=== PATIENT | female | born 1970 | race Caucasian/White ===

== ENCOUNTER → 2018-05-25 15:18 | Outpatient (CLI) | payer OTHER, SELFPAY ==
[2018-05-25 15:44] LABS: International Normalized Ratio 3.2; Prothrombin Time (Protime)PT. 32.9 SECONDS (11.7-14.9)
== END ==
LOC: LABSPEC 15:20
PROVIDERS: Family Provider Family Medicine; PCP Family Medicine; Visit Provider Family Medicine
DX: I26.99 Other pulmonary embolism without acute cor pulmonale (principal)
CPT/HCPCS: 85610

== ENCOUNTER 2018-06-15 06:34 | Day surgery (SDC) | payer OTHER, SELFPAY ==
[2018-06-15 06:52] VITALS: BP 121/65; PULSE 71; RESP 18; TEMP 37; O2SAT 98; BMI 33.4
[2018-06-15 07:55] VITALS: BP 109/66; BP 121/65; PULSE 83; RESP 16; TEMP 36.8; O2SAT 97
--- NOTE | 2018-06-15 07:58 | OP.ENDO_ITS ---
Patient Name: Penny Morfin Procedure Date: 06/15/2018 7:30 AM Date of : 1970 Age: 48 Procedure: Colonoscopy Indications: Change in bowel habits, Change in stool caliber Providers: Isael Lam MD Medicines: See the Anesthesia note for documentation of the administered medications Patient Profile: Last Colonoscopy: more than 5 years ago. Complications: No immediate complications. Procedure: Pre-Anesthesia Assessment: - Prior to the procedure, a History and Physical was performed, and patient medications and allergies were reviewed. The patient's tolerance of previous anesthesia was also reviewed. The risks and benefits of the procedure and the sedation options and risks were discussed with the patient. All questions were answered, and informed consent was obtained. Prior Anticoagulants: The patient has taken Lovenox (enoxaparin), last dose was 1 day prior to procedure. ASA Grade Assessment: III - A patient with severe systemic disease. After reviewing the risks and benefits, the patient was deemed in satisfactory condition to undergo the procedure. After I obtained informed consent, the scope was passed under direct vision. Throughout the procedure, the patient's blood pressure, pulse, and oxygen saturations were monitored continuously. The colonoscope was introduced through the anus and advanced to the cecum, identified by appendiceal orifice and ileocecal valve. The colonoscopy was performed without difficulty. The patient tolerated the procedure well. The quality of the bowel preparation was good. Scope In: 7:37:18 AM Scope Withdrawal Time 0 hours 6 minutes 12 seconds Scope Out: 7:50:17 AM Total Procedure Duration Time 0 hours 12 minutes 59 seconds Findings: Hemorrhoids were found on perianal exam. Non-bleeding internal hemorrhoids were found during retroflexion. The hemorrhoids were mild. The exam was otherwise without abnormality. Impression: - Hemorrhoids found on perianal exam. - Non-bleeding internal hemorrhoids. - The examination was otherwise normal. - No specimens collected. - Nothing to explain the change in stool caliber. Recommendation: - Discharge patient to home. - Resume previous diet. - Continue present medications. - Repeat colonoscopy in 10 years for screening purposes. - Return to my office in 1 week. Procedure Code(s): --- Professional --- 91791, Colonoscopy, flexible; diagnostic, including collection of specimen(s) by brushing or washing, when performed (separate procedure) Diagnosis Code(s): --- Professional --- K64.8, Other hemorrhoids R19.4, Change in bowel habit R19.5, Other fecal abnormalities CPT copyright 2017 [employer]. All rights reserved. The codes documented in this report are preliminary and upon chucking machine set up operator tool review may be revised to meet current compliance requirements. MD Isael Amor MD 06/15/2018 7:57:23 AM This report has been signed electronically. Number of Addenda: 0 Note Initiated On: 06/15/2018 7:30 AM
[2018-06-15 08:00] VITALS: BP 108/65; BP 121/65; PULSE 75; RESP 16; O2SAT 97
[2018-06-15 08:05] VITALS: BP 103/59; BP 121/65; PULSE 73; RESP 16; O2SAT 98
[2018-06-15 08:10] VITALS: BP 103/67; BP 121/65; PULSE 73; RESP 16; TEMP 36.4; O2SAT 97
[2018-06-15 08:31] VITALS: BP 121/65
== END 2018-06-15 08:31 | disposition home or self-care (01) ==
LOC: EN 06:35 → AC 06:36
PROVIDERS: Family Provider Family Medicine; PCP Family Medicine; Referring Provider Surgery; Visit Provider Surgery
PROC: 0DJD8ZZ Inspection of Lower Intestinal Tract, Via Natural or Artificial Opening Endoscopic (ICD-10-PCS; CPT 45378; principal; 2018-06-15 07:25)
DX: K64.8 Other hemorrhoids (principal); R19.4 Change in bowel habit; M32.9 Systemic lupus erythematosus, unspecified; M06.9 Rheumatoid arthritis, unspecified; F41.9 Anxiety disorder, unspecified; Z86.711 Personal history of pulmonary embolism; Z90.49 Acquired absence of other specified parts of digestive tract; Z79.01 Long term (current) use of anticoagulants; Z87.891 Personal history of nicotine dependence; F17.200 Nicotine dependence, unspecified, uncomplicated
CPT/HCPCS: 45378; J7120; J1610

== ENCOUNTER → 2018-07-01 12:20 | Outpatient (CLI) | payer OTHER, SELFPAY ==
--- NOTE | 2018-07-01 12:26 | RAD_ITS ---
STUDY: X-RAY - PELVIS REASON FOR EXAM: Female, 48 years old. Inflammatory polyarthropathy TECHNIQUE: One view of the pelvis was obtained. COMPARISON: None. FINDINGS: There is a non-specific bowel gas pattern. Normal visualized soft tissue structures. Normal bilateral iliac wings, sacroiliac joints and visualized sacrum. Normal visualized bilateral superior and inferior pubic rami. Normal pubic symphysis. Normal ischial tuberosities. Normal visualized right femoral head. Normal right acetabulum. Normal right hip joint. Normal visualized left femoral head. Normal left acetabulum. Normal left hip joint. RAD/Pelvis 1 or 2 Views IMPRESSION: Normal x-ray examination of the pelvis. Electronically Signed: Gonzalez Clark DO at 11:00 EDT Tel , Service support ,
[2018-07-01 13:10] LABS: Prothrombin Time Fingerstick 47.6 SEC (11.9-14.4)
[2018-07-01 14:39] LABS: Absolute Lymphocyte Count 0.97 X10^3/ul (0.83-4.51); Absolute Neutrophil Count 2.8 X10^3/uL (2.0-7.7); Basophil# 0.07 X10^3/uL; Basophil% 1.5 % (0-1); Color, Urine Yellow (Yellow); Eosinophil# 0.28 X10^3/uL; Eosinophils% 5.8 % (0-5); Glucose, Dipstick Normal (Normal); Hematocrit 40.3 % (37-47); Hemoglobin 13.4 g/dl (12.0-15.0); Ketone-Dipstick Negative (Negative); Leukocyte Esterase-Dipstick Negative /ul (Negative); Lymphocyte # 0.97 X10^3/ul (4.0); Lymphocyte % 20.2 % (19-41); Mean Corp Hgb Conc 33.3 g/gl (32-36); Mean Corpuscular Hgb 29.6 pg (27.0-32.0); Mean Platelet Vol. 10.2 fl (6.2-12.0); Monocyte# 0.66 X10^3/uL; Monocyte% 13.7 % (0-10); Neutrophil # 2.83 X10^3/uL (2.7-7.7); Neutrophil % 58.8 % (47-70); Nitrite-Dipstick Negative (Negative); Occult Blood-Urine 10 /ul (Negative); POSITIVE COUNT NO; POSITIVE DIFFERENTIAL NO; POSITIVE MORPHOLOGY NO; Platelet Count 297 K/mm3 (150-450); Protein-Dipstick Negative (Negative); RBC Distribution Width CV 13.3 % (11.6-14.6); RBC Distribution Width SD 43.2 fl (35.1-43.9); Red Blood Count 4.53 M/mm3 (4.2-5.4); Urine Bilirubin Dipstick Negative (Negative); Urine Clarity Clear (Clear); Urine Urobilinogen Normal (Normal); White Blood Count 4.8 K/mm3 (4.4-11.0)
[2018-07-01 14:46] LABS: International Normalized Ratio 3.2; Prothrombin Time (Protime)PT. 33.1 SECONDS (11.7-14.9)
[2018-07-01 15:01] LABS: ALB/GLOB Ratio 0.8 RATIO (0.9-2.4); AST(SGOT) 15 U/L (15-37); Alanine Aminotransfer ALT/SGPT 29 U/L (13-56); Albumin, Serum 3.6 g/dL (3.2-5.0); Alkaline Phosphatase 54 U/L (45-117); Anion Gap 6 (5-15); BUN 10 mg/dL (7-18); BUN/Creat Ratio 13.7 RATIO (10-20); Calcium,Total 8.4 mg/dL (8.5-10.1); Chloride 106 mmol/L (98-107); Creatinine, Serum 0.73 mg/dL (0.55-1.02); EST Glomerular Filtration Rate 90 mL/min (>60); Est Glom Filt Rate - Afr Amer 109 mL/min (>60); Globulin 4.6 g/dL (2.2-4.2); Glucose 85 mg/dL (74-106); Potassium 3.8 mmol/L (3.5-5.1); Protein, Total 8.2 g/dL (6.4-8.2); Sodium Level 141 mmol/L (136-145)
[2018-07-01 15:06] LABS: Vitamin D,25 Hydroxy 17.8 ng/mL (29.95-100.01)
[2018-07-01 15:09] LABS: Creatinine, Urine (random) < 13.00 mg/dL (NO RANGE EST.); Protein, Urine (Random) < 6.0 mg/dL (<11.9)
[2018-07-02 14:07] LABS: Anti-Centromere B Ab <0.2 AI (0.0-0.9); Anti-Jo <0.2 AI (0.0-0.9); Anti-Scleroderma-70 AB <0.2 AI (0.0-0.9); RNP Ab <0.2 AI (0.0-0.9); SJOGREN'S Anti-SS-A test > 8.0 AI (0.0-0.9); SJOGREN'S Anti-SS-B test > 8.0 AI (0.0-0.9); Smith Ab 0.2 AI (0.0-0.9)
[2018-07-03 11:07] LABS: ANTINUCLEAR ANTIBODIES DIRECT Positive (Negative); Anti-dsDNA Ab 1 IU/mL (0-9)
[2018-07-07 20:08] LABS: Complement C3 116 mg/dL (82-167)
[2018-07-08 09:13] LABS: CCP IgG Antibodies 10 units (0-19); HEPATITIS B SURFACE AG Negative (Negative); HLA B27 Negative (.); Hep B Surface Antibodies Non Reactive (.); Hep C Antibodies <0.1 s/co ratio (0.0-0.9)
== END ==
LOC: MTLAB 12:23
PROVIDERS: Internal Medicine Hematology & Oncology; Family Provider Family Medicine; PCP Family Medicine; Referring Provider Internal Medicine Rheumatology; Visit Provider Internal Medicine Rheumatology
DX: M06.4 Inflammatory polyarthropathy (principal); F41.8 Other specified anxiety disorders; I26.99 Other pulmonary embolism without acute cor pulmonale
CPT/HCPCS: 36415; 36416; 72170; 80053; 81002; 81374; 82306; 82570; 84156; 85025; 85610; 86038; 86160; 86200; 86225; 86235; 86431; 86706; 86803; 87340

== ENCOUNTER → 2019-01-08 | Outpatient (CLI) | payer OTHER, SELFPAY ==
[2019-01-08 15:22] LABS: International Normalized Ratio 3.8; Prothrombin Time (Protime)PT. 37.9 SECONDS (11.7-14.9)
== END | disposition home or self-care (01) ==
LOC: LABSPEC 14:48
PROVIDERS: Family Provider Family Medicine; PCP Family Medicine; Referring Provider Internal Medicine Hematology & Oncology; Visit Provider Internal Medicine Hematology & Oncology
DX: I26.99 Other pulmonary embolism without acute cor pulmonale (principal)
CPT/HCPCS: 85610

== ENCOUNTER → 2019-02-01 | Outpatient (CLI) | payer OTHER, SELFPAY ==
[2019-02-01 17:47] LABS: Absolute Lymphocyte Count 1.15 X10^3/ul (0.83-4.51); Absolute Neutrophil Count 2.8 X10^3/uL (2.0-7.7); Basophil# 0.06 X10^3/uL; Basophil% 1.2 % (0-1); Eosinophil# 0.25 X10^3/uL; Hematocrit 40.7 % (37-47); Hemoglobin 13.6 g/dl (12.0-15.0); Lymphocyte # 1.15 X10^3/ul (4.0); Mean Corp Hgb Conc 33.4 g/gl (32-36); Mean Corpuscular Hgb 28.8 pg (27.0-32.0); Monocyte# 0.76 X10^3/uL; Monocyte% 15.2 % (0-10); Neutrophil # 2.78 X10^3/uL (2.7-7.7); Neutrophil % 55.6 % (47-70); Platelet Count 271 K/mm3 (150-450); RBC Distribution Width CV 13.2 % (11.6-14.6); Red Blood Count 4.73 M/mm3 (4.2-5.4)
[2019-02-01 17:48] LABS: POSITIVE COUNT NO; POSITIVE DIFFERENTIAL NO; POSITIVE MORPHOLOGY NO
[2019-02-01 18:05] LABS: ALB/GLOB Ratio 0.8 RATIO (0.9-2.4); AST(SGOT) 17 U/L (15-37); Alanine Aminotransfer ALT/SGPT 23 U/L (13-56); Albumin, Serum 3.6 g/dL (3.2-5.0); Alkaline Phosphatase 55 U/L (45-117); Anion Gap 7 (5-15); BUN 11 mg/dL (7-18); Calcium,Total 8.9 mg/dL (8.5-10.1); Chloride 108 mmol/L (98-107); Creatinine, Serum 0.79 mg/dL (0.55-1.02); EST Glomerular Filtration Rate 82 mL/min (>60); Est Glom Filt Rate - Afr Amer 100 mL/min (>60); Globulin 4.8 g/dL (2.2-4.2); Glucose 84 mg/dL (74-106); Potassium 3.9 mmol/L (3.5-5.1); Protein, Total 8.4 g/dL (6.4-8.2); Sodium Level 142 mmol/L (136-145)
== END | disposition home or self-care (01) ==
LOC: MTLAB 15:06
PROVIDERS: Family Provider Family Medicine; PCP Family Medicine; Referring Provider Internal Medicine Rheumatology; Visit Provider Internal Medicine Rheumatology
DX: M06.4 Inflammatory polyarthropathy (principal); M79.7 Fibromyalgia; F41.8 Other specified anxiety disorders; R76.8 Other specified abnormal immunological findings in serum; R76.0 Raised antibody titer
CPT/HCPCS: 36415; 80053; 85025

== ENCOUNTER → 2019-02-09 | Outpatient (CLI) | payer OTHER, SELFPAY | END | disposition home or self-care (01) | LOC: LABSPEC 13:23 | PROVIDERS: Family Provider Family Medicine; PCP Family Medicine; Referring Provider Internal Medicine Hematology & Oncology; Visit Provider Internal Medicine Hematology & Oncology | DX: I26.99 Other pulmonary embolism without acute cor pulmonale (principal) | CPT/HCPCS: 85610 ==

== ENCOUNTER → 2019-02-10 | Outpatient (CLI) | payer OTHER, SELFPAY ==
[2019-02-10 14:49] LABS: International Normalized Ratio 3.3; Prothrombin Time (Protime)PT. 33.5 SECONDS (11.7-14.9)
== END | disposition home or self-care (01) ==
LOC: LABSPEC 14:26
PROVIDERS: Family Provider Family Medicine; PCP Family Medicine; Referring Provider Internal Medicine Hematology & Oncology; Visit Provider Internal Medicine Hematology & Oncology
DX: I26.99 Other pulmonary embolism without acute cor pulmonale (principal)
CPT/HCPCS: 85610

== ENCOUNTER → 2019-03-18 | Outpatient (CLI) | payer OTHER, SELFPAY ==
[2019-03-18 14:38] LABS: International Normalized Ratio 3.3; Prothrombin Time (Protime)PT. 33.7 SECONDS (11.7-14.9)
== END | disposition home or self-care (01) ==
LOC: LABSPEC 14:10
PROVIDERS: Family Provider Family Medicine; PCP Family Medicine; Referring Provider Internal Medicine Hematology & Oncology; Visit Provider Internal Medicine Hematology & Oncology
DX: I26.99 Other pulmonary embolism without acute cor pulmonale (principal)
CPT/HCPCS: 85610

== ENCOUNTER → 2020-07-31 | Outpatient (REF) | payer SELFPAY | END | disposition home or self-care (01) | LOC: LABSPEC 07:23 | PROVIDERS: PCP Family Medicine; Visit Provider Family Medicine | DX: Z03.818 Encounter for observation for suspected exposure to other biological agents ruled out (principal) | CPT/HCPCS: 87635; U0003 ==

== ENCOUNTER → 2020-08-17 | Outpatient (REF) | payer MEDICARE, SELFPAY | END | disposition home or self-care (01) | LOC: LABSPEC 10:10 | PROVIDERS: PCP Family Medicine; Referring Provider Family Medicine; Visit Provider Family Medicine | DX: Z03.818 Encounter for observation for suspected exposure to other biological agents ruled out (principal) | CPT/HCPCS: 87635; U0003 ==

== ENCOUNTER 2020-08-24 20:06 | Emergency (ER) | payer SELFPAY ==
[2020-08-24 20:07] VITALS: BP 124/86; PULSE 81; RESP 18; TEMP 36.7; O2SAT 100; BMI 36.3
[2020-08-24 20:48] LABS: Absolute Lymphocyte Count 1.59 X10^3/uL (0.83-4.51); Absolute Neutrophil Count 5.3 X10^3/uL (2.0-7.7); Basophil# 0.08 X10^3/uL; Eosinophil# 0.32 X10^3/uL; Eosinophils% 3.9 % (0-5); Hematocrit 43.3 % (37-47); Hemoglobin 13.8 g/dL (12.0-15.0); Lymphocyte # 1.59 X10^3/ul (4.0); Lymphocyte % 19.4 % (19-41); Mean Corp Hgb Conc 31.9 g/dL (32-36); Mean Corpuscular Hgb 29.2 pg (27.0-32.0); Mean Corpuscular Volume 91.7 fL (81-99); Mean Platelet Vol. 9.7 fl (6.2-12.0); Monocyte# 0.92 X10^3/uL; Monocyte% 11.2 % (0-10); NRBC Flagged by Analyzer 0 % (0-5); Neutrophil # 5.29 X10^3/uL (2.7-7.7); Neutrophil % 64.4 % (47-70); Platelet Count 275 K/mm3 (150-450); RBC Distribution Width CV 13.6 % (11.6-14.6); RBC Distribution Width SD 46.5 fl (35.1-43.9); Red Blood Count 4.72 M/mm3 (4.2-5.4); White Blood Count 8.2 K/mm3 (4.4-11.0)
[2020-08-24 20:58] LABS: International Normalized Ratio 2.7
[2020-08-24 20:59] LABS: Fibrinogen 467 mg/dl (203-444)
[2020-08-24 21:02] LABS: Anion Gap 4 (5-15); BUN 13 mg/dL (7-18); BUN/Creat Ratio 18.1 RATIO (10-20); Chloride 110 mmol/L (98-107); Creatinine, Serum 0.72 mg/dL (0.55-1.02); EST Glomerular Filtration Rate 91 mL/min (>60); Est Glom Filt Rate - Afr Amer 110 mL/min (>60); Estimated Creatinine Clearance 86.54 ml/min; Glucose 89 mg/dL (74-106); Potassium 3.5 mmol/L (3.5-5.1); Sodium Level 143 mmol/L (136-145)
[2020-08-24 21:10] LABS: D-Dimer Quantitative (DVT/PE) 0.34 FEU/ug/m (0.27-0.49)
--- NOTE | 2020-08-24 21:31 | ED.DCSUM_ITS ---
History of Present Illness Chief Complaint: Rash Informant: Patient Onset: Today Narrative: Patient reports rash on both legs noted first on her left leg than her right. She is on her feet shopping throughout the day, states she felt itch on the lower legs she scratched this. Later on noted red spots which is progressing. Denies any pain in these regions. Denies trauma. She later noticed spots on her right leg. Patient reports she is on warfarin for history of multiple blood clots in the past history of lupus. She is followed by Dr. Moncada. She states recently her warfarin was decreased down to 9 mg from 10 mg. She states her target INR is between three and four. She does report to me that her pharmacy refilled a new prescription a week ago and the pills looked different. Denies any bleeding gums. States had blood work a week ago that was normal. This was shown to have platelets of 330. Denies any recent illness. Prior similar symptoms: No Past Medical History - Allergies and Home Meds Allergies/Adverse Reactions: Allergies No Known Allergies Allergy (Verified 08/24/20 20:09) Primary Care Physician: Dieter Kevin MD [Primary Care Provider] - Past Medical History: - - Rheumatoid arthritis, lupus, PEs Smoking Status: Current every day smoker Review of Systems General: Denies: Chills, Fever, Sweats Eyes: Denies: Visual changes - bilaterally, Diplopia ENT: Denies: Rhinorrhea, Sore throat Cardiovascular: Denies: Chest pain, Palpitations Respiratory: Denies: Dyspnea, Cough, Dyspnea on exertion Gastrointestinal: Denies: Abdominal pain, Nausea, Vomiting, Diarrhea, Melena, Hematochezia Genitourinary: Denies: Dysuria, Hematuria, Frequency Musculoskeletal: Denies: Back pain, Extremity Pain Skin: Reports: Rash. Denies: Wounds Neurological: Denies: Headache, Weakness, Numbness Physical Exam Vital Signs/Narrative: Vital Signs Temp Pulse Resp BP Pulse Ox 08/24/20 20:07 98.0 F 81 18 124/86 H 100 Inital Vital Signs reviewed: Yes General: Well nourished, Well developed, No Acute Distress Head: Normocephalic, Atraumatic Eyes: Perrl, EOMI ENT: Moist mucous membranes, No rhinorrhea Neck: Supple, Nontender Cardiovascular: Regular rate, Regular rhythm, No murmurs Respiratory: No distress, CTA bilaterally, Chest nontender Abdomen: Soft, Nontender, Nondistended, Normal bowel sounds Back: Nontender, Normal Inspection Extremities: Nontender, - - Very minimal edema distal leg, no calf or medial thigh tenderness. Skin: - - Left lower extremity: Distal leg with petechial rash, there is purpura rash in the back of the ankle, there is no raised lesion. Skin is intact. Nontender. Right lower extremity: Petechial lesions on the distal leg, nontender, skin intact. Neurological: Alert, Oriented x3, Cranial nerves II-XII grossly intact, Normal Strength, Normal Sensation Psychological: Normal affect, Normal Mood Diagnostic/Tx/Re-eval Abnormal Lab Results 08/24/20 08/24/20 08/24/20 20:30 20:30 20:30 WBC 8.2 RBC 4.72 Hgb 13.8 Hct 43.3 MCV 91.7 MCH 29.2 MCHC 31.9 L RDW Std Deviation 46.5 H RDW Coeff of Teja 13.6 Plt Count 275 MPV 9.7 Immature Gran % (Auto) 0.100 Neut % (Auto) 64.4 Lymph % (Auto) 19.4 Upton % (Auto) 11.2 H Eos % (Auto) 3.9 Baso % (Auto) 1.0 Absolute Neuts (auto) 5.3 Absolute Lymphs (auto) 1.59 Nucleated RBC % 0 PT 28.0 H INR 2.7 Fibrinogen 467 H D-Dimer Quant (PE/DVT) 0.34 Sodium 143 Potassium 3.5 Chloride 110 H Carbon Dioxide 29.0 Anion Gap 4 L BUN 13 Creatinine 0.72 Estim Creat Clear Calc 86.54 Est GFR (MDRD) Af Amer 110 Est GFR (MDRD) Non-Af 91 BUN/Creatinine Ratio 18.1 Glucose 89 Calcium 9.0 - Medical Decision Making Patient nontoxic, patient presenting with petechial rash and purpura. She is on warfarin. She denies trauma. I did obtain labs platelets 275, D-dimer 0.34, fibrinogen of 467 slightly elevated above the normal. INR 2.7. She denies any other bleeding issues. I did speak with covering orthotic fitter Dr. Jennings, discussed patient's history and findings and events. Very minimal swelling of the legs, patient without fevers vitals are stable with normal D-dimer and platelets. He states this is more reassuring for any serious events at this time. Recommended monitoring symptoms for leg elevation with EILEEN hoses. Follow-up as an outpatient with signs and symptoms discussed return. Photos were taken on the patient's phone to help follow any worsening symptoms. All questions were answered. ED Disposition - Plan for ED Patient: Disposition: Home or Assisted Living Diagnosis: Petechiae, Purpura Referrals: Prateek Moncada MD [STAFF PHYSICIAN] - 5-7 Days Additional Instructions: Petechia purpura of the legs. Wear your EILEEN hoses and elevate. INR 2.7, platelets 275, D-dimer 0.34, fibrinogen 467, white count of eight, hemoglobin 13. Monitor, worsening or other bleeding issues return to the ED.
== END 2020-08-24 21:41 | disposition home or self-care (01) ==
PROVIDERS: Emergency Provider Emergency Medicine; PCP Family Medicine
DX: D69.2 Other nonthrombocytopenic purpura (principal); M06.9 Rheumatoid arthritis, unspecified; Z79.01 Long term (current) use of anticoagulants; Z79.899 Other long term (current) drug therapy; F17.200 Nicotine dependence, unspecified, uncomplicated; Z86.711 Personal history of pulmonary embolism; Z86.718 Personal history of other venous thrombosis and embolism
CPT/HCPCS: 80048; 85025; 85379; 85384; 85610; 99282

== ENCOUNTER 2021-01-19 21:26 | Emergency (ER) | payer OTHER, SELFPAY ==
[2021-01-19 21:27] VITALS: BP 149/88; PULSE 81; RESP 16; TEMP 36.7; O2SAT 98; BMI 37.5
--- NOTE | 2021-01-19 22:00 | ED.VIS.BACK ---
HPI <Dr. Elio Carbajal DO - Last Filed: 01/19/21 23:15> History of Present Illness Chief Complaint: Back Narrative Narrative: 50-year-old female presenting with upper back pain. She states this started on Friday. She has been seen by her PCP for this and given Flexeril. She states this is not helping and the pain is getting worse. She denies any trauma. 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 She does not believe it is related. She states she also walked her dog who was pulling her around and she is unsure if this could have caused the pain. She states that it radiates from the center of her back bilaterally. Patient is on Coumadin for history of DVT. She also has anxiety and depression. PFS <Dr. Elio Carbajal DO - Last Filed: 01/19/21 23:15> [facility] Medical History (Updated 01/19/21 @ 22:[address] Elio Carbajal DO) Lupus (systemic lupus erythematosus) Pulmonary embolism Rheumatoid arthritis Home Medications lorazepam 1 mg PO BID PRN PRN 01/15/14 [History Last Taken Unknown] warfarin 7.5 mg tablet 10 mg PO DAILY tab 05/25/18 [History Last Taken 06/08/18] cyclobenzaprine 10 mg PO DAILY PRN PRN 01/19/21 [History Last Taken Unknown] hydrocodone-acetaminophen 1 tab PO Q6H PRN PRN 3 Days #12 tablet 01/19/21 [Rx Last Taken Unknown] paroxetine HCl 10 mg PO DAILY 01/19/21 [History Last Taken Unknown] Allergy/AdvReac Type Severity Reaction Status Date / Time No Known Allergies Allergy Verified 01/19/21 21:27 Family History Mother Diabetes Heart disease Hypertension High cholesterol Kidney disease Brother Diabetes High cholesterol Sister Diabetes High cholesterol Thyroid disorder Surgical History History of History of hysterectomy History of laparoscopic cholecystectomy Social History Smoking Status: Current every day smoker ROS <Dr. Elio Carbajal DO - Last Filed: 01/19/21 23:15> ROS ED Constitutional Constitutional ED: Denies chills, fever(s) or sweats Eyes Eyes: Denies blurry vision or change in vision ENT ENT ED: Denies ear pain, rhinorrhea or sore throat Cardiovascular Cardiovascular: Denies chest pain, palpitations or racing heartbeat Respiratory/Chest Respiratory/Chest: Denies cough, dyspnea or sputum Gastrointestinal Gastrointestinal: Denies abdominal pain, constipation, diarrhea or vomiting Genitourinary Genitourinary ED: Denies dysuria, hematuria or urinary frequency Musculoskeletal Musculoskeletal: Reports back pain; Denies arthralgias, myalgias or neck pain Integumentary Denies abscess, Abrasions or rash Neurologic Neurologic: Denies headache(s), paresthesias or weakness Psychiatric Psychiatric: Denies anxiety, depression, suicidal ideation or suicidal thoughts Endocrine Endocrinology: Denies polydipsia or polyuria EXAM <Dr. Elio Carbajal, DO - Last Filed: 01/19/21 23:15> Physical Exam Const Vital Signs: 01/19/21 21:27 Temperature 98.0 F Temperature Source Temporal Pulse Rate 81 Respiratory Rate 16 Blood Pressure 149/88 H Blood Pressure Mean 108 Pulse Ox 98 Oxygen Delivery Method Room Air Positive well nourished General Appearance ED: NAD; Negative for pallor HEENT Reports normocephalic, head/scalp atraumatic and moist mucous membranes Negative for trauma Eyes PERRL and EOMs intact bilaterally Neck no lymphadenopathy and supple Chest Wall inspection of chest normal and palpation of chest normal Resp normal respiratory effort and clear to auscultation bilaterally Auscultation: Negative for rales, rhonchi or wheezes Cardio regular rate and regular rhythm GI normal to inspection, nondistended, normoactive bowel sounds and non-distended Auscultation: normoactive bowel sounds Palpation: soft Narrative: Deferred Back/Spine no CVA tenderness General Back: Negative for CVA tenderness Cervical Spine: Negative for cervical spine tenderness Thoracic Spine / Upper Back: ROM limited, pain with ROM and thoracic spinal tenderness Extremity normal to inspection General Extremety ED: Yes edema and tenderness General Extremity: edema Neuro oriented x3 and CN's II-XII intact bilaterally Sensorium / Orientation: alert Motor Exam: strength 5/5 throughout Psych mental status grossly normal Attitude: No agitated Skin no rashes or lesions noted and no wounds General Skin Exam: Negative for jaundice or pallor <Dr. Adrian Benito MD - Last Filed: 01/19/21 23:55> Physical Exam Const Vital Signs: 01/19/21 21:27 Temperature 98.0 F Temperature Source Temporal Pulse Rate 81 Respiratory Rate 16 Blood Pressure 149/88 H Blood Pressure Mean 108 Pulse Ox 98 Oxygen Delivery Method Room Air [facility] <Dr. Elio Carbajal DO - Last Filed: 01/19/21 23:15> [facility] Narrative Medical decision making narrative: Patient presenting for upper back pain. This is approximately T11-T12. Patient has no midline deformity. She complains of pain that radiates bilaterally from here. She states that cyclobenzaprine is not working. Patient given oxycodone in the ED. I obtained images of the thoracic spine which are pending. Patient was complaining of upper back pain but after she went to imaging started complaining of lower back pain. For this reason lumbar spine was added. Patient will be signed out to incoming ED physician for follow-up on imaging and disposition. I suspect the patient will be discharged home. I did write her prescription for Holland 5 mg/325 because she is on Coumadin and cannot take anti-inflammatories and her Flexeril is not working. Radiography Diagnostic Testing: Radiology Impression Lumbar Spine X-Ray 01/19/21 23:08 IMPRESSION: Grade 1 anterolisthesis L4 on L5. Moderate multilevel degenerative disc disease and spondylosis at L4-5 and L5-S1. Severe multilevel facet arthropathy. Electronically Signed: Samy Hickman MD at 23:46 EDT Tel , Service support , Thoracic Spine X-Ray 01/19/21 23:08 IMPRESSION: No acute abnormalities. Mild multilevel degenerative disc disease and spondylosis. Electronically Signed: Samy Hickman MD at 23:44 EDT Tel , Service support , <Dr. Adrian Benito MD - Last Filed: 01/19/21 23:55> [facility] Radiography X-Ray: LS SPine, T-Spine, Read by ED Physician and Read by Radiologist Diagnostic Testing: Radiology Impression Lumbar Spine X-Ray 01/19/21 23:08 IMPRESSION: Grade 1 anterolisthesis L4 on L5. Moderate multilevel degenerative disc disease and spondylosis at L4-5 and L5-S1. Severe multilevel facet arthropathy. Electronically Signed: Samy Hickman MD at 23:46 EDT Tel , Service support , Thoracic Spine X-Ray 01/19/21 23:08 IMPRESSION: No acute abnormalities. Mild multilevel degenerative disc disease and spondylosis. Electronically Signed: Samy Hickman MD at 23:44 EDT Tel , Service support , Lumbar and thoracic spine x-rays show degenerative changes. No acute disease. Treatment and Re-Evaluation Comments:: This patient was checked out to me with x-rays pending. These have returned and show no acute disease. Patient will be discharged with prescription for Holland. Instructed to follow-up with her primary care physician if not improving. Return to the emergency department for any worsening symptoms. Discharge Plan Triage Chief Complaint: Back ED Provider: Elio Carbajal Dx/Rx/DC Orders Instructions: ED Back Pain (Acute or Chronic) Prescriptions: New hydrocodone-acetaminophen 5-325 mg tablet 1 tab PO Q6H PRN PRN (Reason: Pain) 3 Days Qty: 12 RF: 0 No Action lorazepam 1 MG tablet 1 mg PO BID PRN PRN (Reason: Anxiety) RF: 0 warfarin 7.5 mg tablet 10 mg PO DAILY RF: 0 cyclobenzaprine 10 mg tablet 10 mg PO DAILY PRN PRN (Reason: Pain) RF: 0 paroxetine HCl 10 mg tablet 10 mg PO DAILY RF: 0 Primary Care Provider: Dieter Kevin Referrals: Dieter Kevin MD [Primary Care Provider] - Disposition Disposition: Home, self care
[2021-01-19] MEDS: oxyCODONE 5 MG Tablet PO (22:29)
--- NOTE | 2021-01-19 23:08 | RAD_ITS ---
INDICATION: back pain EXAMINATION/TECHNIQUE: X-RAY - XR Spine Thoracic 3 Views COMPARISON: None FINDINGS: VERTEBRAE: Preserved vertebral body height. No fracture. No spondylolisthesis. Preservation of the normal thoracic kyphosis. Mild multilevel facet arthropathy. DISCS: Mild multilevel degenerative disc disease and spondylosis. INCLUDED CHEST/ABDOMEN: No acute abnormalities. RAD/Thoracic Spine 3 Views IMPRESSION: No acute abnormalities. Mild multilevel degenerative disc disease and spondylosis. Electronically Signed: Samy Hickman MD at 23:44 EDT Tel , Service support ,
--- NOTE | 2021-01-19 23:08 | RAD_ITS ---
INDICATION: back pain EXAMINATION/TECHNIQUE: X-RAY - XR Spine Lumbar 2 or 3 Views COMPARISON: None. FINDINGS: VERTEBRAE: Preserved vertebral body height. No fracture. 7 mm anterolisthesis L4 on L5. Preservation of the normal lumbar lordosis. Severe multilevel facet arthropathy. DISCS: Moderate multilevel degenerative disc disease and spondylosis at L4-5 and L5-S1. INCLUDED ABDOMEN: Included bowel gas pattern is non-obstructive. RAD/Lumbar Spine 2 or 3 Views IMPRESSION: Grade 1 anterolisthesis L4 on L5. Moderate multilevel degenerative disc disease and spondylosis at L4-5 and L5-S1. Severe multilevel facet arthropathy. Electronically Signed: Samy Hickman MD at 23:46 EDT Tel , Service support ,
[2021-01-19 23:57] VITALS: PULSE 78; RESP 14
== END 2021-01-20 00:01 | disposition home or self-care (01) ==
PROVIDERS: Emergency Provider Student in an Organized Health Care Education/Training Program; PCP Family Medicine
DX: M54.9 Dorsalgia, unspecified (principal); M51.34 Other intervertebral disc degeneration, thoracic region; M51.36 Other intervertebral disc degeneration, lumbar region; M51.37 Other intervertebral disc degeneration, lumbosacral region; M47.816 Spondylosis without myelopathy or radiculopathy, lumbar region; M32.9 Systemic lupus erythematosus, unspecified; M06.9 Rheumatoid arthritis, unspecified; F32.9 Major depressive disorder, single episode, unspecified; F41.9 Anxiety disorder, unspecified; F17.200 Nicotine dependence, unspecified, uncomplicated; Z79.01 Long term (current) use of anticoagulants; Z79.899 Other long term (current) drug therapy; Z86.718 Personal history of other venous thrombosis and embolism; Z86.711 Personal history of pulmonary embolism
CPT/HCPCS: 72072; 72100; 99283

== ENCOUNTER 2021-01-29 18:36 | Emergency (ER) | payer OTHER, SELFPAY ==
[2021-01-29 18:37] VITALS: BP 138/82; PULSE 85; RESP 18; TEMP 37.1; O2SAT 100; BMI 37.5
--- NOTE | 2021-01-29 19:18 | CT_ITS ---
STUDY: CT ABDOMEN AND PELVIS WITHOUT CONTRAST REASON FOR EXAM: Female, 50 years old. Pain RADIATION DOSAGE (If Supplied By Facility): CTDIvol = ( 17.23 ) mGy, DLP = ( 882.29 ) mGycm TECHNIQUE: Transaxial images were obtained from the dome of the diaphragm to the symphysis pubis without oral contrast, and without intravenous contrast. Sagittal and coronal images were reconstructed. Individualized dose optimization techniques were used for this CT. COMPARISON: 05/13/2018 FINDINGS: The visualized lung bases are unremarkable. The visualized portions of the heart are within normal limits. Normal liver. There is non-visualization of the gallbladder, which may be secondary to either contraction or a prior cholecystectomy. Normal spleen. Normal pancreas. Normal bilateral adrenal glands. Normal right kidney. 3 mm nonobstructing stone lower pole the left kidney. No hydronephrosis, ureteral stone, or ureteral dilatation. 3 cm cyst lower pole left kidney. Normal visualized stomach. Normal small intestine. Normal colon. The appendix is visualized and appears normal. Normal abdominal aorta. Normal inferior vena cava. Normal retroperitoneum. Normal urinary bladder. Normal abdominal wall. Focal degenerative disc disease at L4/L5. CT/Abdomen/Pelvis without Cont IMPRESSION: 3 mm nonobstructing left renal stone. Electronically Signed: Dallin Prasad MD at 20:04 EDT Tel , Service support ,
--- NOTE | 2021-01-29 19:19 | EX.ED.DYSGE1 ---
HPI History of Present Illness Chief Complaint: Constipation Narrative Narrative: Patient is a 50-year-old female who presents with abdominal bloating back pain and constipation. She states she is never been regular. She has not had a bowel movement in 4-5 days. Of note she was recently prescribed [place] for a back strain. She has tried milk of magnesia Senokot and a suppository without relief. She states she feels bloated. She is concerned because she also has some lower back pain. 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 Patient denies any vomiting. She does have flatus. [facility] Medical History (Updated 01/29/21 @ 20:[address] Andrey Topete MD) Lupus (systemic lupus erythematosus) Pulmonary embolism Rheumatoid arthritis Home Medications lorazepam 1 mg PO BID PRN PRN 01/15/14 [History Last Taken Unknown] warfarin 7.5 mg tablet 10 mg PO DAILY tab 05/25/18 [History Last Taken 06/08/18] cyclobenzaprine 10 mg PO DAILY PRN PRN 01/19/21 [History Last Taken Unknown] hydrocodone-acetaminophen 1 tab PO Q6H PRN PRN 3 Days #12 tablet 01/19/21 [Rx Last Taken Unknown] paroxetine HCl 10 mg PO DAILY 01/19/21 [History Last Taken Unknown] Allergy/AdvReac Type Severity Reaction Status Date / Time No Known Allergies Allergy Verified 01/29/21 18:38 Family History Mother Diabetes Heart disease Hypertension High cholesterol Kidney disease Brother Diabetes High cholesterol Sister Diabetes High cholesterol Thyroid disorder Surgical History History of History of hysterectomy History of laparoscopic cholecystectomy Social History Smoking Status: Current every day smoker tobacco type: cigarettes ROS ROS ED Constitutional Constitutional ED: Denies fever(s) Cardiovascular Cardiovascular: Denies chest pain Respiratory/Chest Respiratory/Chest: Denies dyspnea Gastrointestinal Gastrointestinal: Reports constipation and other Details: Abdominal discomfort and bloating ; Denies vomiting Musculoskeletal Musculoskeletal: Reports back pain Integumentary Denies rash Neurologic Neurologic: Denies headache(s) EXAM Physical Exam Const Vital Signs: 01/29/21 18:37 Temperature 98.7 F Temperature Source Oral Pulse Rate 85 Respiratory Rate 18 Blood Pressure 138/82 H Blood Pressure Mean 100 Pulse Ox 100 Oxygen Delivery Method Room Air Eyes EOMs intact bilaterally Neck supple Resp normal respiratory effort Cardio regular rate GI non-tender and non-distended Auscultation: normoactive bowel sounds Palpation: soft Neuro Sensorium / Orientation: alert Psych mental status grossly normal Skin no rashes or lesions noted MDM MDM MDM Narrative Medical decision making narrative: Serum labs and urinalysis are unremarkable. CT the abdomen pelvis showed nephrolithiasis. This is nonobstructive. But I believe this is the cause of the patient's symptoms. She does have moderate amount of stool in the ascending and transverse colon on my review. I do not see evidence of fecal impaction. Patient was advised on MiraLAX. She is agreeable to this plan. She understands return for new or worsening symptoms. Patient discharged. Lab Data Labs: Laboratory Results - last 24 hr 01/29/21 01/29/21 01/29/21 19:50 19:50 20:09 WBC 6.8 RBC 4.62 Hgb 13.6 Hct 42.2 MCV 91.3 MCH 29.4 MCHC 32.2 RDW Std Deviation 45.1 H RDW Coeff of Teja 13.3 Plt Count 289 MPV 9.2 Immature Gran % (Auto) 0.300 Neut % (Auto) 52.7 Lymph % (Auto) 26.1 [place] % (Auto) 14.2 H Eos % (Auto) 5.4 H Baso % (Auto) 1.3 H Absolute Neuts (auto) 3.6 Absolute Lymphs (auto) 1.78 Nucleated RBC % 0 Sodium 141 Potassium 3.4 L Chloride 108 H Carbon Dioxide 30.0 Anion Gap 3 L BUN 12 Creatinine 0.83 Estim Creat Clear Calc 75.07 Est GFR (MDRD) Af Amer 93 Est GFR (MDRD) Non-Af 77 BUN/Creatinine Ratio 14.4 Glucose 97 Calcium 8.8 Total Bilirubin 0.20 Direct Bilirubin 0.09 AST 19 ALT 22 Alkaline Phosphatase 85 Total Protein 8.6 H Albumin 3.7 Globulin 4.9 H Urine Color Yellow Urine Clarity Clear Urine pH 6.5 Ur Specific [place] 1.010 Urine Protein 30 H Urine Glucose (UA) Normal Urine Ketones Negative Urine Occult Blood 25 H Urine Nitrite Negative Urine Bilirubin Negative Urine Urobilinogen Normal Ur Leukocyte Esterase Negative Urine RBC 0-5 SEEN Urine WBC 0 SEEN Ur Squamous Epith Cells 0 SEEN Urine Bacteria 0 SEEN Urine Mucus 0 SEEN Radiography Diagnostic Testing: Radiology Impression Abdomen/Pelvis CT 01/29/21 19:18 IMPRESSION: 3 mm nonobstructing left renal stone. Electronically Signed: Dallin Prasad MD at 20:04 EDT Tel , Service support , Discharge Plan Triage Chief Complaint: Constipation ED Provider: Andrey Topete Dx/Rx/DC Orders Clinical Impression: Constipation Instructions: ED Constipation (Adult) Prescriptions: No Action lorazepam 1 MG tablet 1 mg PO BID PRN PRN (Reason: Anxiety) RF: 0 warfarin 7.5 mg tablet 10 mg PO DAILY RF: 0 cyclobenzaprine 10 mg tablet 10 mg PO DAILY PRN PRN (Reason: Pain) RF: 0 paroxetine HCl 10 mg tablet 10 mg PO DAILY RF: 0 hydrocodone-acetaminophen 5-325 mg tablet 1 tab PO Q6H PRN PRN (Reason: Pain) 3 Days Qty: 12 RF: 0 Primary Care Provider: Dieter Kevin Referrals: Dieter Kevin MD [Primary Care Provider] - Disposition Disposition: Home, self care
[2021-01-29 20:00] LABS: Absolute Lymphocyte Count 1.78 X10^3/uL (0.83-4.51); Absolute Neutrophil Count 3.6 X10^3/uL (2.0-7.7); Basophil# 0.09 X10^3/uL; Basophil% 1.3 % (0-1); Eosinophil# 0.37 X10^3/uL; Eosinophils% 5.4 % (0-5); Hematocrit 42.2 % (37-47); Hemoglobin 13.6 g/dL (12.0-15.0); Lymphocyte # 1.78 X10^3/ul (0.83-4.51); Lymphocyte % 26.1 % (19-41); Mean Corp Hgb Conc 32.2 g/dL (32-36); Mean Corpuscular Hgb 29.4 pg (27.0-32.0); Mean Corpuscular Volume 91.3 fL (81-99); Mean Platelet Vol. 9.2 fl (6.2-12.0); Monocyte# 0.97 X10^3/uL; Monocyte% 14.2 % (0-10); NRBC Flagged by Analyzer 0 % (0-5); Neutrophil % 52.7 % (47-70); Platelet Count 289 K/mm3 (150-450); RBC Distribution Width CV 13.3 % (11.6-14.6); RBC Distribution Width SD 45.1 fl (35.1-43.9); Red Blood Count 4.62 M/mm3 (4.2-5.4); White Blood Count 6.8 K/mm3 (4.4-11.0)
[2021-01-29 20:30] LABS: AST(SGOT) 19 U/L (15-37); Alanine Aminotransfer ALT/SGPT 22 U/L (13-56); Albumin, Serum 3.7 g/dL (3.2-5.0); Alkaline Phosphatase 85 U/L (45-117); Anion Gap 3 (5-15); BUN 12 mg/dL (7-18); BUN/Creat Ratio 14.4 RATIO (10-20); Bilirubin, Direct 0.09 mg/dL (0.00-0.30); Calcium,Total 8.8 mg/dL (8.5-10.1); Chloride 108 mmol/L (98-107); Creatinine, Serum 0.83 mg/dL (0.55-1.02); EST Glomerular Filtration Rate 77 mL/min (>60); Est Glom Filt Rate - Afr Amer 93 mL/min (>60); Estimated Creatinine Clearance 75.07 ml/min; Globulin 4.9 g/dL (2.2-4.2); Glucose 97 mg/dL (74-106); Potassium 3.4 mmol/L (3.5-5.1); Protein, Total 8.6 g/dL (6.4-8.2); Sodium Level 141 mmol/L (136-145)
[2021-01-29 20:30] LABS: Bacteria 0 SEEN /hpf (None Seen); Color, Urine Yellow (Yellow); Glucose, Dipstick Normal (Normal); Ketone-Dipstick Negative (Negative); Leukocyte Esterase-Dipstick Negative /ul (Negative); Mucous, Urine 0 SEEN /hpf (<or=2+); Nitrite-Dipstick Negative (Negative); Occult Blood-Urine 25 /ul (Negative); Protein-Dipstick 30 mg/dl (Negative); Squamous Epithelial Cells - UA 0 SEEN /hpf (5-10); Urine Bilirubin Dipstick Negative (Negative); Urine Clarity Clear (Clear); Urine Urobilinogen Normal (Normal); Urine pH 6.5 (5.0 - 8.0); White Blood Cells 0 SEEN /hpf (0-5)
[2021-01-29 20:38] LABS: Red Blood Cells-Urine 0-5 SEEN /hpf (0-5)
== END 2021-01-29 21:25 | disposition home or self-care (01) ==
PROVIDERS: Emergency Provider Emergency Medicine; PCP Family Medicine
DX: K59.00 Constipation, unspecified (principal); F17.210 Nicotine dependence, cigarettes, uncomplicated
CPT/HCPCS: 74176; 80048; 80076; 81001; 85025; 99284; A4216

== ENCOUNTER 2022-08-19 23:17 | Emergency (ER) | payer SELFPAY ==
[2022-08-19 23:17] VITALS: BP 141/107; PULSE 109; RESP 18; TEMP 37.2; O2SAT 97; BMI 37.1
--- NOTE | 2022-08-20 00:22 | EDS_ITS ---
HPI History of Present Illness Chief Complaint: Cold Sx Narrative Narrative: 52-year-old female presenting with cough, fever, chills, body aches which started on Friday. Patient denies any nausea or vomiting. She is eating and drinking normally. Is making normal urine and stool. She was seen at [facility] yesterday and clinically diagnosed with influenza. She was treated with Tamiflu and Tessalon Perles. She states that now her ears are hurting. She had these looked at yesterday as well and was told they are not infected. Patient does state that she has history of PE for which she is on Coumadin. She checks her INR at home and states that this last week it was therapeutic at 3.4. She is not dyspneic. No black or bloody stools. No lightheadedness. [facility] Medical History Lupus (systemic lupus erythematosus) Pulmonary embolism Rheumatoid arthritis Home Medications lorazepam 1 mg tablet 1 mg PO BID PRN PRN Anxiety 01/15/14 [History Last Taken Unknown] warfarin 7.5 mg tablet 10 mg PO DAILY 05/25/18 [History Last Taken 06/08/18] cyclobenzaprine 10 mg tablet 10 mg PO DAILY PRN PRN Pain 01/19/21 [History Last Taken Unknown] hydrocodone-acetaminophen 5-325mg 5mg-325mg 1 tab PO Q6H PRN PRN Pain 3 days #12 TABLETS 01/19/21 [Rx Last Taken Unknown] paroxetine HCl 10 mg tablet 10 mg PO DAILY 01/19/21 [History Last Taken Unknown] amoxicillin 875 mg-potassium clavulanate 125 mg tablet 1 tab PO BID #20 tabs 08/20/22 [Rx Last Taken Unknown] Allergy/AdvReac Type Severity Reaction Status Date / Time No Known Allergies Allergy Verified 08/19/22 23:19 Family History Mother Diabetes Heart disease Hypertension High cholesterol Kidney disease Brother Diabetes High cholesterol Sister Diabetes High cholesterol Thyroid disorder Surgical History History of History of hysterectomy History of laparoscopic cholecystectomy Social History Smoking Status: Current every day smoker tobacco type: cigarettes ROS ROS ED Constitutional Constitutional ED: Reports chills and fever(s) Eyes Eyes: Denies change in vision or diplopia ENT ENT ED: Reports rhinorrhea and sore throat Cardiovascular Cardiovascular: Denies palpitations Respiratory/Chest Respiratory/Chest: Reports cough and dyspnea Gastrointestinal Gastrointestinal: Denies nausea or vomiting Genitourinary Genitourinary ED: Denies dysuria or hematuria Musculoskeletal Musculoskeletal: Reports myalgias; Denies arthralgias Integumentary Denies abscess Neurologic Neurologic: Reports headache(s); Denies paresthesias or weakness EXAM Physical Exam Const Vital Signs: 08/19/22 23:17 08/20/22 00:03 Temperature 98.9 F Temperature Source Temporal Pulse Rate 109 H Respiratory Rate 18 Respiratory Effort Short of Breath Respiratory Depth Shallow Respiratory Pattern Tachypnea Blood Pressure 141/107 H Blood Pressure Mean 118 Pulse Ox 97 Oxygen Delivery Method Room Air Positive well nourished General Appearance ED: NAD HEENT Reports moist mucous membranes External Ear: external ears normal Tympanic Membrane ED: Yes TM abnormal bulging and erythematous Mouth ED: Yes oral and palatal mucosa normal, Yes lips normal, Yes tongue normal and Yes salivary gland normal Mouth: oral and palatal mucosa normal, lips normal, tongue normal and salivary gland normal Throat: posterior oropharynx normal Eyes PERRL and EOMs intact bilaterally Neck no lymphadenopathy, supple and no JVD Chest Wall inspection of chest normal Resp normal respiratory effort and clear to auscultation bilaterally Auscultation: Negative for rales, rhonchi or wheezes Cardio regular rate and regular rhythm GI normal to inspection, nondistended, normoactive bowel sounds Neuro oriented x3 and CN's II-XII intact bilaterally Sensorium / Orientation: alert Motor Exam: strength 5/5 throughout Psych mental status grossly normal Skin no rashes or lesions noted and no wounds MDM MDM MDM Narrative Medical decision making narrative: Patient presenting with flulike illness. She states this started on Friday. She reports that her ears are hurting her more than anything now today. On examination she does appear to have a right otitis media. I did offer blood work, imaging but she declines. She is already been treated with Tamiflu. She has Tessalon Perles at home. I will start her on Augmentin for her otitis media. Patient discharged home in stable condition. Impression: 1. Viral syndrome 2. Right otitis media Lab Data Attestation: I reviewed the patient's lab results. Discharge Plan Triage Chief Complaint: Cold Sx ED Provider: Elio Carbajal Dx/Rx/DC Orders Instructions: ED Otitis Media Antibiotic ..., ED Viral Syndrome (Adult) Prescriptions: New amoxicillin-pot clavulanate 875-125 mg tablet 1 tab PO BID Qty: 20 0RF No Action lorazepam 1 MG tablet 1 mg PO BID PRN PRN (Reason: Anxiety) Rx Instructions: PRN ANXIETY warfarin 7.5 mg tablet 10 mg PO DAILY cyclobenzaprine 10 mg tablet 10 mg PO DAILY PRN PRN (Reason: Pain) paroxetine HCl 10 mg tablet 10 mg PO DAILY Label Comments: Take 1 tablet by mouth once daily. hydrocodone-acetaminophen 5-325 mg tablet 1 tab PO Q6H PRN PRN (Reason: Pain) 3 Days Qty: 12 0RF Primary Care Provider: Dieter Kevin Referrals: Dieter Kevin MD [Primary Care Provider] - Disposition Disposition: Home, Self Care
[2022-08-20] MEDS: Amox/Clavulanate 875 MG Tablet PO (00:27)
== END 2022-08-20 00:31 | disposition home or self-care (01) ==
PROVIDERS: Emergency Provider Student in an Organized Health Care Education/Training Program; PCP Family Medicine; Visit Provider Student in an Organized Health Care Education/Training Program
DX: B34.9 Viral infection, unspecified (principal); H66.91 Otitis media, unspecified, right ear; F17.210 Nicotine dependence, cigarettes, uncomplicated; Z86.711 Personal history of pulmonary embolism
CPT/HCPCS: 99283

== ENCOUNTER 2023-01-05 19:33 | Emergency (ER) | payer SELFPAY ==
[2023-01-05 19:33] VITALS: BP 144/73; PULSE 94; RESP 16; TEMP 36.6; O2SAT 98; BMI 38.5
--- NOTE | 2023-01-05 19:38 | ED.RN ---
PT STATES BACK PAIN AFTER BENDING OVER AT WORK BUT ADAMANTLY REFUSES TO FILE WORKER'S COMP CLAIM, WILL NOT DISCLOSE EMPLOYER'S NAME WELL.
[2023-01-05 19:51] VITALS: BP 144/73; PULSE 94; RESP 16; O2SAT 98
--- NOTE | 2023-01-05 19:51 | EDS_ITS ---
HPI History of Present Illness Chief Complaint: Back Informant: patient Onset/Context/Timing Onset: Days (3-days) Context: Gradual Onset Timing: Waxes and wanes Quality: Aching and Throbbing Location: Lumbar Current Severity: Moderate Maximum Severity: Severe Worsened by: improves with Movement Narrative Narrative: Patient presents secondary to low back pain. She reports low back pain started 2 days ago and she will occasionally have pain that shoots down both legs. She denies any known injury. She does have a history of degenerative disc disease. Patient also has noted some swelling over the area with a small bruise. She is on Coumadin and checked her INR yesterday. It was 3.6 and she states her target INR is between 3 and 4. She has had no problems with bowel or bladder control. [facility] Medical History (Updated 01/05/23 @ 19:[address] Jania Castro MD) Lupus (systemic lupus erythematosus) Pulmonary embolism Rheumatoid arthritis Home Medications lorazepam 1 mg tablet 1 mg PO BID PRN PRN Anxiety 01/15/14 [History Last Taken Unknown] warfarin 7.5 mg tablet 10 mg PO DAILY 05/25/18 [History Last Taken 06/08/18] cyclobenzaprine 10 mg tablet 10 mg PO DAILY PRN PRN Pain 01/19/21 [History Last Taken Unknown] hydrocodone-acetaminophen 5-325mg 5mg-325mg 1 tab PO Q6H PRN PRN Pain 3 days #12 TABLETS 01/19/21 [Rx Last Taken Unknown] paroxetine HCl 10 mg tablet 10 mg PO DAILY 01/19/21 [History Last Taken Unknown] amoxicillin 875 mg-potassium clavulanate 125 mg tablet 1 tab PO BID #20 tabs 08/20/22 [Rx Last Taken Unknown] cyclobenzaprine 10 mg tablet 10 mg PO TID PRN Muscle Spasm #20 TABLETS 01/05/23 [Rx Last Taken Unknown] oxycodone 5 mg tablet 5 mg PO Q8H PRN pain 3 days #10 tabs 01/05/23 [Rx Last Taken Unknown] Allergy/AdvReac Type Severity Reaction Status Date / Time No Known Allergies Allergy Verified 01/05/23 19:36 Family History Mother Diabetes Heart disease Hypertension High cholesterol Kidney disease Brother Diabetes High cholesterol Sister Diabetes High cholesterol Thyroid disorder Surgical History History of History of hysterectomy History of laparoscopic cholecystectomy Social History Smoking Status: Current every day smoker tobacco type: cigarettes ROS ROS ED Constitutional Constitutional ED: Denies chills or fever(s) Eyes Eyes: Denies change in vision or discharge from eye(s) ENT ENT ED: Denies discharge from eye(s), rhinorrhea or sore throat Cardiovascular Cardiovascular: Denies chest pain or palpitations Respiratory/Chest Respiratory/Chest: Denies cough or dyspnea Gastrointestinal Gastrointestinal: Denies abdominal pain, nausea or vomiting Genitourinary Genitourinary ED: Denies dysuria Musculoskeletal Musculoskeletal: Reports back pain; Denies extremity pain Integumentary Denies Abrasions or rash Neurologic Neurologic: Denies headache(s), paresthesias or weakness Psychiatric Psychiatric: Denies anxiety or depression Allergic/Immunologic Allergic/Immunologic ED: Denies lip swelling or urticaria EXAM Physical Exam Const Vital Signs: 01/05/23 19:33 Temperature 97.8 F Temperature Source Temporal Pulse Rate 94 Respiratory Rate 16 Blood Pressure 144/73 H Blood Pressure Mean 96 Pulse Ox 98 Oxygen Delivery Method Room Air Positive well nourished and well developed General Appearance ED: well developed HEENT Reports normocephalic and head/scalp atraumatic Eyes PERRL and EOMs intact bilaterally Neck supple Chest Wall inspection of chest normal and palpation of chest normal Resp normal respiratory effort and clear to auscultation bilaterally Cardio regular rate and regular rhythm GI normal to inspection, nondistended, normoactive bowel sounds Palpation: soft Back/Spine no CVA tenderness Back/Spine Narrative: Reproducible tenderness in the left low lumbar paraspinal muscles. No erythema or warmth. Small, 5 mm diameter area of ecchymosis. No midline tenderness. Extremity normal to inspection Neuro oriented x3 and no sensory deficits noted Sensorium / Orientation: alert Motor Exam: strength 5/5 throughout Deep Tendon Reflexes: Rt Patellar (L4): 1+ and Lt Patellar (L4): 1+ Deep Tendon Reflexes Back: Rt Patellar (L4): 1+ and Lt Patellar (L4): 1+ Psych mental status grossly normal Skin no rashes or lesions noted MDM MDM MDM Narrative Medical decision making narrative: Patient is already taking Tylenol for pain. Given her Coumadin we will avoid anti-inflammatories. I will give her a short course of oxycodone and Flexeril. I do not believe imaging is necessary as she has not had any trauma to her back. Return instructions are given. Discharge Plan Triage Chief Complaint: Back ED Provider: Jania Castro Dx/Rx/DC Orders Clinical Impression: Acute lumbar myofascial strain Instructions: ED Back Sprain/Strain Prescriptions: New oxycodone 5 mg tablet 5 mg PO Q8H PRN (Reason: pain) 3 Days Qty: 10 0RF cyclobenzaprine 10 mg tablet 10 mg PO TID PRN (Reason: Muscle Spasm) Qty: 20 0RF No Action lorazepam 1 MG tablet 1 mg PO BID PRN PRN (Reason: Anxiety) Rx Instructions: PRN ANXIETY warfarin 7.5 mg tablet 10 mg PO DAILY cyclobenzaprine 10 mg tablet 10 mg PO DAILY PRN PRN (Reason: Pain) paroxetine HCl 10 mg tablet 10 mg PO DAILY Label Comments: Take 1 tablet by mouth once daily. hydrocodone-acetaminophen 5-325 mg tablet 1 tab PO Q6H PRN PRN (Reason: Pain) 3 Days Qty: 12 0RF amoxicillin-pot clavulanate 875-125 mg tablet 1 tab PO BID Qty: 20 0RF Primary Care Provider: Dieter Kevin Referrals: Dieter Kevin MD [Primary Care Provider] - 1 Week if not improving Disposition Disposition: Home, Self Care
[2023-01-05] MEDS: oxyCODONE 5 MG Tablet PO (19:58)
[2023-01-05] MEDS: cycloBENZAPRine HCl 10 MG Tablet PO (19:58)
== END 2023-01-05 20:11 | disposition home or self-care (01) ==
LOC: ED 20:06
PROVIDERS: Emergency Provider Emergency Medicine; PCP Family Medicine; Visit Provider Emergency Medicine
DX: S39.012A Strain of muscle, fascia and tendon of lower back, initial encounter (principal); F17.210 Nicotine dependence, cigarettes, uncomplicated; Z79.01 Long term (current) use of anticoagulants; Z87.39 Personal history of other diseases of the musculoskeletal system and connective tissue; X58.XXXA Exposure to other specified factors, initial encounter
CPT/HCPCS: 99281

== ENCOUNTER 2023-07-02 16:02 | Emergency (ER) | payer SELFPAY ==
[2023-07-02 16:03] VITALS: BP 181/100; PULSE 86; RESP 18; TEMP 35.6; O2SAT 97; BMI 39.2
--- NOTE | 2023-07-02 16:12 | EKG12_ITS ---
Test Reason : Blood Pressure : / mmHG Vent. Rate : 076 BPM Atrial Rate : 076 BPM P-R Int : 150 ms QRS Dur : 090 ms QT Int : 398 ms P-R-T Axes : 036 010 026 degrees QTc Int : 447 ms Normal sinus rhythm Normal ECG Confirmed by BIJAL CAIN, HYUN ([id number]), graphics editor CARLOS TORRES ([id number]) on 07/14/2023 8:02:51 AM Referred By: JAYESH Confirmed By:CHRISTIAN APPIAH MD
--- NOTE | 2023-07-02 16:21 | RAD_ITS ---
INDICATION: chest pain EXAMINATION/TECHNIQUE: X-RAY - XR Chest 1 View COMPARISON: None. FINDINGS: LINES/DEVICES: None. LUNGS: No consolidation, edema or effusion. No pneumothorax. MEDIASTINUM AND CARDIOVASCULAR STRUCTURES: Cardiac silhouette not enlarged. Central airways and mediastinal contour are unremarkable. BONES AND SOFT TISSUES: Unremarkable. RAD/Chest 1 View (Portable) IMPRESSION: No radiographic evidence of acute cardiopulmonary disease. Electronically Signed: Qamar Faulkner MD at 16:57 EDT ,
[2023-07-02 16:42] VITALS: BP 186/102; PULSE 73; RESP 16; O2SAT 97
[2023-07-02 16:51] LABS: Absolute Lymphocyte Count 1.52 X10^3/uL (0.83-4.51); Absolute Neutrophil Count 4.3 X10^3/uL (2.0-7.7); Basophil# 0.08 X10^3/uL; Basophil% 1.2 % (0-1); Eosinophil# 0.33 X10^3/uL; Eosinophils% 4.8 % (0-5); Hematocrit 42.7 % (37-47); Hemoglobin 13.8 g/dL (12.0-15.0); Lymphocyte # 1.52 X10^3/ul (0.83-4.51); Lymphocyte % 21.9 % (19-41); Mean Corp Hgb Conc 32.3 g/dL (32-36); Mean Corpuscular Hgb 28.9 pg (27.0-32.0); Mean Corpuscular Volume 89.5 fL (81-99); Mean Platelet Vol. 9.7 fl (6.2-12.0); Monocyte# 0.68 X10^3/uL; Monocyte% 9.8 % (0-10); NRBC Flagged by Analyzer 0 % (0-5); Neutrophil # 4.31 X10^3/uL (2.7-7.7); Neutrophil % 62.2 % (47-70); Platelet Count 308 K/mm3 (150-450); RBC Distribution Width CV 13.2 % (11.6-14.6); RBC Distribution Width SD 43.6 fl (35.1-43.9); Red Blood Count 4.77 M/mm3 (4.2-5.4); White Blood Count 6.9 K/mm3 (4.4-11.0)
[2023-07-02 17:02] VITALS: BP 170/94; PULSE 77; RESP 18
[2023-07-02 17:14] LABS: Anion Gap 4 (5-15); BUN 6 mg/dL (7-18); BUN/Creat Ratio 7.1 RATIO (10-20); Calcium,Total 8.8 mg/dL (8.5-10.1); Chloride 106 mmol/L (98-107); Creatinine, Serum 0.85 mg/dL (0.55-1.02); EST Glomerular Filtration Rate 74 mL/min (>60); Est Glom Filt Rate - Afr Amer 90 mL/min (>60); Estimated Creatinine Clearance 70.83 ml/min; Glucose 98 mg/dL (74-106); Potassium 3.8 mmol/L (3.5-5.1); Sodium Level 139 mmol/L (136-145); Troponin-I HS (w/2H Reflex) 6 pg/mL (3.0-54.0)
--- NOTE | 2023-07-02 17:43 | ED.VIS.CHEST ---
HPI History of Present Illness Chief Complaint: Chest Pain Narrative Narrative: 53-year-old female presenting with chest pain. She describes it as intermittent and lasting 20 minutes at a time. She describes it as aching. Patient states that she does not have any cardiac history. She has no history of hypertension, hyperlipidemia, diabetes although she states it runs in her family. She states her brother at 47 from an [place]. Patient states that she is been treated for sinusitis currently but has not had a cough or shortness of breath. She has a mild headache which she attributes to the sinus infection. Patient states that she saw her PCP and was put on a blood pressure medicine that starts with an L but she does not remember what it is called. She states that the pharmacy. She noted today that her blood pressure was up so she came to the emergency room. [facility] Medical History Lupus (systemic lupus erythematosus) Pulmonary embolism Rheumatoid arthritis Home Medications lorazepam 1 mg tablet 1 mg PO BID PRN PRN Anxiety 01/15/14 [History Last Taken Unknown] warfarin 7.5 mg tablet 10 mg PO DAILY 05/25/18 [History Last Taken 06/08/18] cyclobenzaprine 10 mg tablet 10 mg PO DAILY PRN PRN Pain 01/19/21 [History Last Taken Unknown] hydrocodone-acetaminophen 5-325mg 5mg-325mg 1 tab PO Q6H PRN PRN Pain 3 days #12 TABLETS 01/19/21 [Rx Last Taken Unknown] paroxetine HCl 10 mg tablet 10 mg PO DAILY 01/19/21 [History Last Taken Unknown] amoxicillin 875 mg-potassium clavulanate 125 mg tablet 1 tab PO BID #20 tabs 08/20/22 [Rx Last Taken Unknown] cyclobenzaprine 10 mg tablet 10 mg PO TID PRN Muscle Spasm #20 TABLETS 01/05/23 [Rx Last Taken Unknown] oxycodone 5 mg tablet 5 mg PO Q8H PRN pain 3 days #10 tabs 01/05/23 [Rx Last Taken Unknown] Allergy/AdvReac Type Severity Reaction Status Date / Time venlafaxine [From Effexor] Allergy Mild htn Verified 07/02/23 16:03 Family History Mother Diabetes Heart disease Hypertension High cholesterol Kidney disease Brother Diabetes High cholesterol Sister Diabetes High cholesterol Thyroid disorder Surgical History History of History of hysterectomy History of laparoscopic cholecystectomy Social History Smoking Status: Former smoker ROS ROS ED Constitutional Constitutional ED: Denies chills, fever(s) or sweats Eyes Eyes: Denies blurry vision or change in vision ENT ENT ED: Denies ear pain or sore throat Cardiovascular Cardiovascular: Reports chest pain; Denies palpitations or racing heartbeat Respiratory/Chest Respiratory/Chest: Denies cough, dyspnea or sputum Gastrointestinal Gastrointestinal: Denies abdominal pain, constipation, diarrhea, nausea or vomiting Genitourinary Genitourinary ED: Denies dysuria, hematuria or urinary frequency Musculoskeletal Musculoskeletal: Denies arthralgias, myalgias or neck pain Integumentary Denies abscess, Abrasions or rash Neurologic Neurologic: Reports headache(s); Denies paresthesias or weakness Psychiatric Psychiatric: Denies anxiety, depression, suicidal ideation or suicidal thoughts Endocrine Endocrinology: Denies polydipsia or polyuria EXAM Physical Exam Const Vital Signs: 07/02/23 16:03 07/02/23 16:42 07/02/23 16:42 Temperature 96.1 F L Temperature Source Temporal Pulse Rate 86 73 Respiratory Rate 18 16 Respiratory Pattern Blood Pressure 181/100 H 186/102 H Blood Pressure Mean 127 130 Pulse Ox 97 97 Oxygen Delivery Method Room Air Room Air Room Air 07/02/23 16:43 07/02/23 16:43 07/02/23 17:02 Temperature Temperature Source Pulse Rate 77 Respiratory Rate 18 Respiratory Pattern Normal Normal Blood Pressure 170/94 H Blood Pressure Mean 119 Pulse Ox Oxygen Delivery Method Room Air 07/02/23 17:59 07/02/23 18:29 07/02/23 19:34 Temperature Temperature Source Pulse Rate 72 75 Respiratory Rate 22 H 16 Respiratory Pattern Blood Pressure 172/96 H 168/74 H 155/87 H Blood Pressure Mean 121 105 109 Pulse Ox 95 99 Oxygen Delivery Method Room Air Room Air Positive well nourished General Appearance ED: NAD HEENT Reports moist mucous membranes normocephalic and atraumatic Eyes PERRL and EOMs intact bilaterally Chest Wall inspection of chest normal and palpation of chest normal Resp normal respiratory effort and clear to auscultation bilaterally Auscultation: Negative for rales, rhonchi or wheezes Cardio regular rate and regular rhythm Extremity normal to inspection Neuro oriented x3 and CN's II-XII intact bilaterally Sensorium / Orientation: awake and alert Psych mental status grossly normal Skin no rashes or lesions noted Heart Score History: Slightly/Non-Suspicious ECG: Normal Age: >45 - <65 years Risk Factors: 1 or 2 Risk Factors Troponin: </= Normal Limit Score: 2 MDM MDM MDM Narrative Medical decision making narrative: Patient presenting with intermittent chest pain for 2 days. No cardiac history. HEART score of 2. Patient is on Coumadin for history of PE. Differential includes acute coronary syndrome, CHF, pneumonia, subtherapeutic INR, costochondritis. CBC obtained to assess white blood cell count, hemoglobin, platelets. BMP to assess renal function, electrolytes, glucose. High-sensitivity troponin EKG to assess for ischemia/dysrhythmia. Should rule out pneumonia. EKG on my interpretation shows normal sinus rhythm with a ventricular rate of 76 bpm without sign of ischemic change or dysrhythmia on my interpretation. Chest x-ray on my interpretation shows no acute process. CBC and BMP unremarkable. High-sensitivity troponin 6. Will obtain delta troponin. Patient states he has a mild headache and she will be treated with Reglan, Benadryl, Toradol. I do not believe she needs as head CT. On reevaluation her headache is improved. Blood pressure is down to 135/87 without treatment. Lab work-up was unremarkable. She had 2 high-sensitivity troponins which were negative. INR was 2.4 and therefore therapeutic so I do not have concern for PE. Patient counseled on all findings. Discussed with the patient that she needs to take her blood pressure medicine and keep a blood pressure diary to follow-up with her primary care physician. She acknowledged understanding. Discharged home in stable condition. Impression: 1. Hypertension 2. Chest pain 3. Headache Lab Data Attestation: I reviewed the patient's lab results. Labs: Laboratory Results - last 24 hr 07/02/23 07/02/23 07/02/23 16:20 17:48 18:20 WBC 6.9 RBC 4.77 Hgb 13.8 Hct 42.7 MCV 89.5 MCH 28.9 MCHC 32.3 RDW Std Deviation 43.6 RDW Coeff of Teja 13.2 Plt Count 308 MPV 9.7 Immature Gran % (Auto) 0.100 Neut % (Auto) 62.2 Lymph % (Auto) 21.9 [place] % (Auto) 9.8 Eos % (Auto) 4.8 Baso % (Auto) 1.2 H Absolute Neuts (auto) 4.3 Absolute Lymphs (auto) 1.52 Nucleated RBC % 0 PT 26.2 H INR 2.4 Sodium 139 Potassium 3.8 Chloride 106 Carbon Dioxide 29.0 Anion Gap 4 L BUN 6 L Creatinine 0.85 Estim Creat Clear Calc 70.83 Est GFR (MDRD) Af Amer 90 Est GFR (MDRD) Non-Af 74 BUN/Creatinine Ratio 7.1 L Glucose 98 Calcium 8.8 Troponin I High Sens 6 6 Radiography Diagnostic Testing: Clinical Impression(s) from Imaging Studies Chest X-Ray 07/02/23 16:21 IMPRESSION: No radiographic evidence of acute cardiopulmonary disease. Electronically Signed: Qamar Faulkner MD at 16:57 EDT Reading Location ID and State: [facility] / [place] Tel , Service support , Discharge Plan Triage Chief Complaint: Chest Pain Other Complaint: Headache Hypertension ED Provider: Elio Carbajal Dx/Rx/DC Orders Instructions: Self-Care for Headaches, ED Chest Pain, Noncardiac, ED Hypertension, Established Prescriptions: No Action lorazepam 1 MG tablet 1 mg PO BID PRN PRN (Reason: Anxiety) Rx Instructions: PRN ANXIETY warfarin 7.5 mg tablet 10 mg PO DAILY cyclobenzaprine 10 mg tablet 10 mg PO DAILY PRN PRN (Reason: Pain) paroxetine HCl 10 mg tablet 10 mg PO DAILY Patient Comments: Take 1 tablet by mouth once daily. hydrocodone-acetaminophen 5-325 mg tablet 1 tab PO Q6H PRN PRN (Reason: Pain) 3 Days Qty: 12 0RF amoxicillin-pot clavulanate 875-125 mg tablet 1 tab PO BID Qty: 20 0RF oxycodone 5 mg tablet 5 mg PO Q8H PRN (Reason: pain) 3 Days Qty: 10 0RF cyclobenzaprine 10 mg tablet 10 mg PO TID PRN (Reason: Muscle Spasm) Qty: 20 0RF Stand Alone Forms: ED Work / School Excuse Primary Care Provider: Dieter Kevin Referrals: Dieter Kevin MD [Primary Care Provider] - Disposition Disposition: Home, Self Care Discharge Date/Time: 07/02/23 19:37
[2023-07-02] MEDS: Ketorolac 15 MG/ML Vial IV (17:52)
[2023-07-02] MEDS: Metoclopramide 10 MG/2 ML Vial IV (17:52)
[2023-07-02] MEDS: DiphenhydrAMINE 50 MG/ML Syringe 25 MG IV (17:52)
[2023-07-02 17:59] VITALS: BP 172/96; PULSE 72; RESP 22; O2SAT 95
[2023-07-02 18:23] LABS: International Normalized Ratio 2.4; Prothrombin Time (Protime)PT. 26.2 SECONDS (11.7-14.9)
[2023-07-02 18:29] VITALS: BP 168/74; PULSE 75; RESP 16; O2SAT 99
[2023-07-02 18:39] LABS: Reflex Troponin-HS? (from REC) Y
[2023-07-02 19:04] LABS: Troponin-I HS 6 pg/mL (3.0-54.0)
[2023-07-02 19:34] VITALS: BP 155/87
== END 2023-07-02 19:37 | disposition home or self-care (01) ==
PROVIDERS: Emergency Provider Student in an Organized Health Care Education/Training Program; PCP Family Medicine; Visit Provider Student in an Organized Health Care Education/Training Program
DX: I10 Essential (primary) hypertension (principal); M32.9 Systemic lupus erythematosus, unspecified; M06.9 Rheumatoid arthritis, unspecified; R07.9 Chest pain, unspecified; Z87.891 Personal history of nicotine dependence; R51.9 Headache, unspecified; Z82.49 Family history of ischemic heart disease and other diseases of the circulatory system; Z79.899 Other long term (current) drug therapy; Z79.01 Long term (current) use of anticoagulants
CPT/HCPCS: 71045; 80048; 84484; 85025; 85610; 93005; 96374; 96375; 99285; A4216

== ENCOUNTER 2023-12-21 17:12 | Emergency (ER) | payer SELFPAY ==
[2023-12-21 17:13] VITALS: BP 141/86; PULSE 106; RESP 18; TEMP 37.6; O2SAT 96; BMI 39.2
[2023-12-21 17:18] VITALS: O2SAT 96
--- NOTE | 2023-12-21 17:45 | RAD_ITS ---
STUDY: X-RAY CHEST REASON FOR EXAM: Female, 53 years old. chest pain TECHNIQUE: Single AP portable view of the chest. COMPARISON: None. FINDINGS: The lungs are clear and expanded. There is no demonstrated pleural abnormality. Normal size heart. Normal mediastinum and yared. Normal visualized pulmonary arteries. Normal visualized aortic arch and descending thoracic aorta. Normal visualized thoracic spine. Normal visualized ribs, clavicles, and shoulders. There is no demonstrated abnormality of the visualized soft tissue structures of the upper abdomen. RAD/Chest 1 View (Portable) IMPRESSION: Normal x-ray examination of the chest. Electronically Signed: Dallin Prasad MD at 18:47 EDT ,
--- NOTE | 2023-12-21 17:49 | EDS_ITS ---
HPI HPI - URI History of Present Illness Chief Complaint: Cold Sx Informant: patient Onset/Context/Timing Onset: Days (6) Context: Gradual Onset Timing: Continuous Quality: Throbbing Location: Head Worsened by: - (Coughing) Relieved by: - (Nothing) Associated Symptoms Associated Symptoms: Positive for Headache, Myalgias, Shortness of Breath, Chest Pain and Productive Cough (Brown and green sputum); Negative for Nasal Congestion, Sinus Pressure, Nausea, Vomiting, Diarrhea, Nonproductive cough or Hemoptysis Narrative Narrative: Patient presents with cough and upper respiratory congestion that has been getting worse over the past 6 days. Patient states she has been coughing up some brown and green sputum. Patient admits to a fever of 101 at home. Patient admits to some chills. Patient states she has had a sore throat. Patient also admits to a headache. Patient describes it as throbbing. Patient admits to some aching in her chest. Patient states her pain radiates into her thoracic area. Patient states her pain is worse with coughing. Patient also admits to some general myalgias. ROS ROS ED Constitutional Constitutional ED: Reports chills and fever(s) Eyes Eyes: Denies blurry vision or change in vision ENT ENT ED: Reports sore throat; Denies rhinorrhea Cardiovascular Cardiovascular: Reports chest pain; Denies palpitations Respiratory/Chest Respiratory/Chest: Reports cough, dyspnea and sputum Gastrointestinal Gastrointestinal: Denies nausea or vomiting Genitourinary Genitourinary ED: Denies dysuria or hematuria Musculoskeletal Musculoskeletal: Reports back pain; Denies neck pain Integumentary Denies abscess or rash Neurologic Neurologic: Reports headache(s); Denies weakness Allergic/Immunologic Allergic/Immunologic ED: Denies mouth swelling or urticaria [facility] Medical History (Updated 12/21/23 @ 19:[address] John Rodarte, DO) Anxiety Lupus (systemic lupus erythematosus) Pulmonary embolism Rheumatoid arthritis Home Medications lorazepam 1 mg tablet 1 mg PO BID PRN PRN Anxiety 01/15/14 [History Last Taken Unknown] warfarin 7.5 mg tablet 10 mg PO DAILY 05/25/18 [History Last Taken 06/08/18] cyclobenzaprine 10 mg tablet 10 mg PO DAILY PRN PRN Pain 01/19/21 [History Last Taken Unknown] paroxetine HCl 10 mg tablet 10 mg PO DAILY 01/19/21 [History Last Taken Unknown] amoxicillin 875 mg-potassium clavulanate 125 mg tablet 1 tab PO BID #20 tabs 08/20/22 [Rx Last Taken Unknown] cyclobenzaprine 10 mg tablet 10 mg PO TID PRN Muscle Spasm #20 TABLETS 01/05/23 [Rx Last Taken Unknown] oxycodone 5 mg tablet 5 mg PO Q8H PRN pain 3 days #10 tabs 01/05/23 [Rx Last Taken Unknown] guaifenesin 1,200 mg tablet, extended release 12 hr 1,200 mg PO BID PRN cough #20 tabs 12/21/23 [Rx Last Taken Unknown] hydrocodone-acetaminophen 5-325mg 5mg-325mg 1 tab PO Q6H PRN PRN Pain, cough 3 days #10 TABLETS 12/21/23 [Rx Last Taken Unknown] Allergy/AdvReac Type Severity Reaction Status Date / Time venlafaxine [From Effexor] Allergy Mild htn Verified 12/21/23 17:13 Family History Mother Diabetes Heart disease Hypertension High cholesterol Kidney disease Brother Diabetes High cholesterol Sister Diabetes High cholesterol Thyroid disorder Surgical History History of History of hysterectomy History of laparoscopic cholecystectomy Social History Smoking Status: Former smoker EXAM Physical Exam Const Vital Signs: 12/21/23 17:13 12/21/23 17:18 12/21/23 17:18 Temperature 99.6 F H Temperature Source Temporal Pulse Rate 106 H Respiratory Rate 18 Respiratory Pattern Blood Pressure 141/86 H Blood Pressure Mean 104 Pulse Ox 96 96 Oxygen Delivery Method Room Air Room Air 12/21/23 18:57 Temperature Temperature Source Pulse Rate 89 Respiratory Rate 20 H Respiratory Pattern Normal Blood Pressure Blood Pressure Mean Pulse Ox Oxygen Delivery Method Positive well nourished, well developed and obese General Appearance ED: well developed and NAD Nutritional Appearance: obese HEENT Reports moist mucous membranes Neck supple, no meningeal signs and no JVD Resp normal respiratory effort Auscultation: rhonchi throughout Cardio Rate: regular rate Rhythm: regular rhythm GI non-tender and non-distended Palpation: soft Extremity normal to inspection and full ROM Neuro oriented x3, CN's II-XII intact bilaterally and no sensory deficits noted Sensorium / Orientation: alert Motor Exam: strength 5/5 throughout Psych mental status grossly normal MDM MDM MDM Narrative Medical decision making narrative: Differential diagnosis includes pneumonia, bronchitis, viral upper respiratory infection, and reactive airway disease. Chest x-ray will be obtained to assess for pneumonia and bronchitis. COVID-19, influenza, and RSV PCR will be obtained to assess for viral infection. Lab Data Attestation: I reviewed the patient's lab results. Lab results narrative: COVID-19 PCR was reviewed and was negative. Influenza PCR was reviewed and was negative for influenza A and influenza B. RSV PCR was reviewed and was negative. Radiography Chest X-Ray - ED: 1 View, Read by ED Physician, Read by Radiologist and No Acute Disease Diagnostic Testing: Clinical Impression(s) from Imaging Studies Chest X-Ray 12/21/23 17:45 IMPRESSION: Normal x-ray examination of the chest. Electronically Signed: Dallin Prasad MD at 18:47 EDT , Portable 1 view chest x-ray was obtained. On my independent interpretation, lung webster are clear. There is normal cardiac silhouette. Bony thorax is normal. There is no acute process noted. Radiologist also interpreted the x- ray and agrees. Treatment and Re-Evaluation Narrative: Patient was given a DuoNeb aerosol here. Patient was advised of her findings. Patient was advised that this may be a viral upper respiratory infection. Patient was instructed to drink plenty of fluids. Patient was instructed to take Tylenol or ibuprofen as needed for any aches or fevers. Patient was instructed to follow-up with her primary care physician in 5 to 7 days. Patient understood and was agreeable with the plan. All questions were answered. Discharge Plan Triage Chief Complaint: Cold Sx ED Provider: John Rodarte Dx/Rx/DC Orders Clinical Impression: Viral upper respiratory infection, Cough, Obesity (BMI 30-39.9) Instructions: ED URI, Viral, No Abx (Adult) Prescriptions: New hydrocodone-acetaminophen [hydrocodone-acetaminophen] 5-325 mg tablet 1 tab PO Q6H PRN PRN (Reason: Pain, cough) 3 Days Qty: 10 0RF guaifenesin 1,200 mg tablet extended release 12hr 1,200 mg PO BID PRN (Reason: cough) Qty: 20 0RF Discontinued hydrocodone-acetaminophen 5-325 mg tablet 1 tab PO Q6H PRN PRN (Reason: Pain) 3 Days Qty: 12 0RF No Action lorazepam 1 MG tablet 1 mg PO BID PRN PRN (Reason: Anxiety) Rx Instructions: PRN ANXIETY warfarin 7.5 mg tablet 10 mg PO DAILY cyclobenzaprine 10 mg tablet 10 mg PO DAILY PRN PRN (Reason: Pain) paroxetine HCl 10 mg tablet 10 mg PO DAILY Patient Comments: Take 1 tablet by mouth once daily. amoxicillin-pot clavulanate 875-125 mg tablet 1 tab PO BID Qty: 20 0RF oxycodone 5 mg tablet 5 mg PO Q8H PRN (Reason: pain) 3 Days Qty: 10 0RF cyclobenzaprine 10 mg tablet 10 mg PO TID PRN (Reason: Muscle Spasm) Qty: 20 0RF Primary Care Provider: Dieter Kevin Referrals: Dieter Kevin MD [Primary Care Provider] - 3-5 Days Disposition Disposition: Home, Self Care
[2023-12-21 18:57] VITALS: PULSE 89; RESP 20
[2023-12-21] MEDS: Ipratropium/Albuterol Sulfate 3 ML AMPUL.NEB INHALATION (18:57)
--- NOTE | 2023-12-21 20:19 | ED.RN ---
Pt irrate that she has to wait for her medication to be filled here. States she has things to do and that she's already been here for 3 hours. This RN reminded pt that the delay came because her preferred pharmacy is where the meds were originally sent and that she stated that she needed them tonight so to have the order takes time. Also the inpatient pharmacist has the entire hospital to fill meds for so although it's a courtesy to get meds to beds it can take some time and patience. Pt states she wants to leave and come back. Pt is educated that because they are narcotics she'll have to sign for them. Pt states she already has one med at home and only needs the pain med. Pharmacy notified. Pt asked to wait in waiting room for total and meds will be delivered to her there.
== END 2023-12-21 20:29 | disposition home or self-care (01) ==
PROVIDERS: Emergency Provider Emergency Medicine; PCP Family Medicine; Visit Provider Emergency Medicine
DX: J06.9 Acute upper respiratory infection, unspecified (principal); R06.02 Shortness of breath; M79.10 Myalgia, unspecified site; R51.9 Headache, unspecified; Z11.52 Encounter for screening for COVID-19; E66.9 Obesity, unspecified; Z87.891 Personal history of nicotine dependence
CPT/HCPCS: 71045; 87631; 94640; 94760; 99282

== ENCOUNTER 2024-09-23 02:35 | Emergency (ER) | payer SELFPAY ==
[2024-09-23 02:36] VITALS: BP 192/98; PULSE 85; RESP 18; TEMP 36.6; O2SAT 97; BMI 40.0
--- NOTE | 2024-09-23 03:00 | CT_ITS ---
INDICATION: headache EXAMINATION: CT BRAIN - CT Head or Brain W/O Contrast Injection TECHNIQUE: Serial CT axial images were obtained of the head without intravenous contrast. A radiation dose optimization technique was used for this scan. COMPARISON: 01/15/[address] Findings: Serial CT axial images of the head without contrast. BRAIN PARENCHYMA: Normal lucas-white matter differentiation. No evidence of intraparenchymal hemorrhage or hyperattenuating extra-axial fluid collection. BONES: Bilateral ethmoid sinus mucosal thickening. Minimal bilateral maxillary sinus mucosal thickening. SCALP/REMAINING SOFT TISSUES: Unremarkable. ASPECTS Score for Acute Strokes, if applicable: 10 CT/Brain/Head without Contrast IMPRESSION: No acute intracranial hemorrhage in this noncontrast head CT. Sinus disease. Electronically Signed: Bhavesh Saxena MD at 4:00 EST ,
--- NOTE | 2024-09-23 03:00 | EKG12_ITS ---
Test Reason : DYSRHYTHMIA Blood Pressure : */* mmHG Vent. Rate : 75 BPM Atrial Rate : 75 BPM P-R Int : 146 ms QRS Dur : 90 ms QT Int : 404 ms P-R-T Axes : 50 18 36 degrees QTcB Int : 451 ms Normal sinus rhythm Normal ECG Confirmed by BIJAL CAIN, HYUN ([id number]), marketing editor CARLOS TORRES ([id number]) on 09/28/2024 7:11:54 AM Referred By: Confirmed By: HYUN APPIAH MD
--- NOTE | 2024-09-23 03:00 | CT_ITS ---
INDICATION: neck pain EXAMINATION: CT SPINE - CT Spine Cervical W/O Contrast Injection COMPARISON: 01/15/[address] A radiation dose optimization technique was used for this scan. RADIATION DOSAGE (If Supplied By Facility): CTDIvol/DLP = ( 26.24 ) / ( 515.93 ) mGy/mGycm Findings: Serial CT axial images through the cervical spine, with coronal and sagittal reformatted series. BONES: No evidence of cervical spine fracture or subluxation. No concerning bony lesion or abnormal sclerosis to suggest lesion. DISCS/JOINTS: Moderate to severe right C4-C5 and C5-C6 neuroforaminal narrowing. There is at least moderate central bony spinal canal stenosis at the C4-C5 level as well as C6-C7 level. SOFT TISSUES: 5 mm right apical pulmonary nodule, prior 2 mm. Enlarged heterogeneous bilateral thyroid without definite discrete lesion. Ovoid 25 x 16 mm isoattenuating lesion posterior to the left thyroid lobe, which has increased in size from 11 years prior, previously [address]/Spine Cervical without Contras IMPRESSION: Cervical spine without evidence of acute fracture. Ovoid 25 x 16 mm isoattenuating lesion posterior to the left thyroid lobe, which has increased in size from 11 years prior, previously 18 x 10 mm. Recommend nonemergent follow-up thyroid ultrasound to better characterize as neoplastic process is not excluded. Pulmonary nodule as above. Recommend comparison follow-up evaluation as per Fleischner guidelines as neoplastic process is not excluded. Neuroforaminal narrowing and central bony spinal canal stenosis. Electronically Signed: Bhavesh Saxena MD at 4:18 EST ,
[2024-09-23] MEDS: Orphenadrine 60 MG/2 ML Ampul IV (03:07)
[2024-09-23 03:11] LABS: Absolute Lymphocyte Count 1.52 X10^3/uL (0.83-4.51); Absolute Neutrophil Count 4.9 X10^3/uL (2.0-7.7); Basophil# 0.12 X10^3/uL; Basophil% 1.5 % (0-1); Eosinophil# 0.43 X10^3/uL; Eosinophils% 5.5 % (0-5); Hemoglobin 14.3 g/dL (12.0-15.0); Lymphocyte # 1.52 X10^3/ul (0.83-4.51); Lymphocyte % 19.4 % (19-41); Mean Corp Hgb Conc 33.3 g/dL (32-36); Mean Corpuscular Hgb 29.1 pg (27.0-32.0); Mean Corpuscular Volume 87.4 fL (81-99); Mean Platelet Vol. 9.7 fl (6.2-12.0); Monocyte# 0.85 X10^3/uL; Monocyte% 10.8 % (0-10); NRBC Flagged by Analyzer 0 % (0-5); Neutrophil # 4.91 X10^3/uL (2.7-7.7); Neutrophil % 62.5 % (47-70); Platelet Count 328 K/mm3 (150-450); RBC Distribution Width CV 13.4 % (11.6-14.6); RBC Distribution Width SD 43.2 fl (35.1-43.9); Red Blood Count 4.92 M/mm3 (4.2-5.4); White Blood Count 7.9 K/mm3 (4.4-11.0)
--- NOTE | 2024-09-23 03:19 | EDS_ITS ---
HPI History of Present Illness Chief Complaint: Headache Informant: patient Narrative Narrative: Patient is a 54-year-old female with past medical history of lupus rheumatoid arthritis and previous PE currently on Coumadin. She states that her blood pressure has been creeping up when she has been evaluated at her doctor's office. However she has not been on blood pressure medication. She states over the past week she has been having a recurrent headache and is also noticed some neck discomfort. She states has been no trauma and she denies any sick symptoms. She states that she has been checking her blood pressure and it has been running high. She reports that she was recently placed on a round of prednisone secondary to her RA but has been off of it for approximately 4 days. She states that she initially believed her blood pressure was elevated because of the prednisone but as she has been off of it with no symptom improvement and no resolution of her headache she presents for evaluation [facility] Medical History Hypertension Anxiety Pulmonary embolism Rheumatoid arthritis Lupus (systemic lupus erythematosus) Home Medications ?Medication ?Instructions ?Recorded ?Last Taken ?Type lorazepam 1 mg tablet 1 mg PO BID PRN PRN Anxiety 01/15/14 Unknown History warfarin 7.5 mg tablet 10 mg PO DAILY 05/25/18 06/08/18 History paroxetine HCl 10 mg tablet 10 mg PO DAILY 01/19/21 Unknown History methocarbamol 500 mg tablet See Rx Instructions .Route 09/23/24 Unknown Rx .COMPLEX #56 tabs metoprolol succinate 25 mg 25 mg PO DAILY 30 days #30 tabs 09/23/24 Unknown Rx tablet,extended release 24 hr Allergy/AdvReac Type Severity Reaction Status Date / Time venlafaxine (From Effexor) Allergy Mild htn Verified 09/23/24 02:39 Family History Mother Diabetes Heart disease Hypertension High cholesterol Kidney disease Brother Diabetes High cholesterol Sister Diabetes High cholesterol Thyroid disorder Surgical History History of History of laparoscopic cholecystectomy History of hysterectomy Social History Smoking Status: Current every day smoker tobacco type: e-cigarettes ROS ROS ED Constitutional Constitutional ED: Denies chills or fever(s) Eyes Eyes: Denies blurry vision or change in vision ENT ENT ED: Denies sore throat Cardiovascular Cardiovascular: Denies chest pain, palpitations or racing heartbeat Respiratory/Chest Respiratory/Chest: Denies cough or dyspnea Gastrointestinal Gastrointestinal: Denies abdominal pain, diarrhea, nausea or vomiting Genitourinary Genitourinary ED: Denies dysuria Musculoskeletal Musculoskeletal: Reports neck pain Integumentary Denies rash Neurologic Neurologic: Reports headache(s); Denies paresthesias or weakness Hematologic/Lymphatic Hematologic/Lymphatic: Reports easy bleeding and easy bruising EXAM Physical Exam Const Vital Signs: 09/23/24 02:36 09/23/24 02:41 09/23/24 03:36 Temperature 97.9 F Temperature Source Oral Pulse Rate 85 74 Respiratory Rate 18 15 Respiratory Effort Normal Respiratory Pattern Normal Blood Pressure 192/98 H 155/86 H Blood Pressure Mean 129 109 Pulse Ox 97 97 Oxygen Delivery Method Room Air Room Air Positive well nourished and well developed General Appearance ED: well developed; Negative for pallor HEENT HEENT Narrative: Normocephalic atraumatic Eyes PERRL and EOMs intact bilaterally General Eye ED: Negative for scleral icterus Neck supple Neck Narrative: No bony deformity or step-off of the cervical spine no midline tenderness to palpation There is bilateral paracervical tension and spasm noted that worsens with palpation and motion No nuchal rigidity or meningeal signs Resp normal respiratory effort and clear to auscultation bilaterally Cardio regular rate and regular rhythm Rate: other Other Details: Heart is regular rate and rhythm without murmurs rubs or gallops Radial and carotid pulses are equal and symmetric No carotid bruit GI normal to inspection, nondistended, normoactive bowel sounds, non-tender, non- distended and no masses GI Narrative: No pulsatile mass Auscultation: normoactive bowel sounds Palpation: soft Extremity normal to inspection Extremity Narrative: No asymmetric edema no pitting edema negative Homans' sign bilaterally Neuro oriented x3, CN's II-XII intact bilaterally and no sensory deficits noted Neuro Narrative: GCS of 15 Cranial nerves II through XII are grossly intact without focal neurologic deficit No pronator drift no dysmetria no truncal ataxia NIH stroke scale score of 0 Sensorium / Orientation: alert Motor Exam: strength 5/5 throughout Psych Mood & Affect: anxious Skin no rashes or lesions noted and no wounds General Skin Exam: Negative for jaundice or pallor MDM MDM MDM Narrative Medical decision making narrative: Patient arrived to the ER hypertensive at approximately 190/100. With this she reported a generalized headache without sick symptoms or trauma. As she is on C oumadin there is concern that she has a spontaneous subarachnoid or subdural hemorrhage. Secondary to this is a noncontrast CT was obtained which was negative for bleed or mass. Her neurologic exam is normal and she is awake alert and oriented person place and time going against hypertensive encephalopathy. In order to ensure there is no signs of acute kidney injury or acute coronary syndrome basic blood work with an EKG were obtained. Labs showed no signs of SHELBI or clinically significant [place] abnormality. EKG was normal sinus rhythm without ischemic findings and this correlates with a normal troponin value going against ACS. The patient was given labetalol and clonidine and her blood pressure reduced by approximately 25% which is the goal reduction in the ER. With improvement of blood pressure she still reported headache so she was given a migraine cocktail of Toradol Benadryl and Reglan. On reevaluation her blood pressure has remained stabilized/improved she reports improvement of her headache and her neurologic exam is normal. Therefore without focal neurologic deficit signs of endorgan damage or spontaneous internal bleed there is no need for further evaluation and patient can be discharged home and follow-up with her family doctor for repeat evaluation. History & Record Review Discussion w/independent historian: Patient Lab Data Attestation: I reviewed the patient's lab results. Labs: Laboratory Results - last 24 hr 09/23/24 02:45 WBC 7.9 RBC 4.92 Hgb 14.3 Hct 43.0 MCV 87.4 MCH 29.1 MCHC 33.3 RDW Std Deviation 43.2 RDW Coeff of Teja 13.4 Plt Count 328 MPV 9.7 Immature Gran % (Auto) 0.300 Neut % (Auto) 62.5 Lymph % (Auto) 19.4 [place] % (Auto) 10.8 H Eos % (Auto) 5.5 H Baso % (Auto) 1.5 H Absolute Neuts (auto) 4.9 Absolute Lymphs (auto) 1.52 Nucleated RBC % 0 PT 24.0 H INR 2.1 Sodium 137 Potassium 3.6 Chloride 104 Carbon Dioxide 27.0 Anion Gap 6 BUN 16 Creatinine 0.87 Estim Creat Clear Calc 92.99 Est GFR (MDRD) Af Amer 87 Est GFR (MDRD) Non-Af 72 BUN/Creatinine Ratio 18.5 Glucose 113 H Calcium 9.3 Troponin I High Sens 4 Radiography Diagnostic Testing: Clinical Impression(s) from Imaging Studies Brain CT 09/23/24 03:00 IMPRESSION: No acute intracranial hemorrhage in this noncontrast head CT. Sinus disease. Electronically Signed: Bhavesh Saxena MD at 4:00 EST , Cervical Spine CT 09/23/24 03:00 IMPRESSION: Cervical spine without evidence of acute fracture. Ovoid 25 x 16 mm isoattenuating lesion posterior to the left thyroid lobe, which has increased in size from 11 years prior, previously 18 x 10 mm. Recommend nonemergent follow-up thyroid ultrasound to better characterize as neoplastic process is not excluded. Pulmonary nodule as above. Recommend comparison follow-up evaluation as per Fleischner guidelines as neoplastic process is not excluded. Neuroforaminal narrowing and central bony spinal canal stenosis. Electronically Signed: Bhavesh Saxena MD at 4:18 EST , Discharge Plan Triage Chief Complaint: Headache Other Complaint: Hypertension ED Provider: Jhony Resendez Dx/Rx/DC Orders Clinical Impression: Hypertension, Cephalgia, Current use of group home anticoagulation Instructions: ED Headache Unspecified, ED Hypertension New Begin Treatment Prescriptions: New methocarbamol 500 mg tablet See Rx Instructions .ROUTE .COMPLEX Qty: 56 0RF Rx Instructions: 1 to 2 pills by mouth 4 times daily as needed muscle pain/spasm metoprolol succinate 25 mg tablet extended release 24 hr 25 mg PO DAILY 30 Days Qty: 30 1RF No Action lorazepam 1 MG tablet 1 mg PO BID PRN PRN (Reason: Anxiety) Rx Instructions: PRN ANXIETY warfarin 7.5 mg tablet 10 mg PO DAILY Rx Instructions: 8mg 3x/week on Friday and Friday, all other days 9mg paroxetine HCl 10 mg tablet 10 mg PO DAILY Patient Comments: Take 1 tablet by mouth once daily. Primary Care Provider: Dieter Kevin Referrals: Dieter Kevin MD [Primary Care Provider] - Activity Restrictions/Additional Instructions: Your workup showed no signs of brain bleed kidney damage or heart damage associated with your hypertension and headache. Please begin taking the prescribed medication to help with muscle tension/spasm as well as high blood pressure. Follow-up with your family doctor for repeat evaluation and to discuss medication adjustment and return to the ER should you have any further concerns. Print Language: Georgian Disposition Disposition: Home, Self Care
[2024-09-23 03:28] LABS: International Normalized Ratio 2.1
[2024-09-23] MEDS: cloNIDine HCl 0.1 MG Tablet PO (03:35)
[2024-09-23 03:36] VITALS: BP 155/86; PULSE 74; RESP 15; O2SAT 97
[2024-09-23 03:40] LABS: Anion Gap 6 (5-15); BUN 16 mg/dL (7-18); BUN/Creat Ratio 18.5 RATIO (10-20); Calcium,Total 9.3 mg/dL (8.5-10.1); Chloride 104 mmol/L (98-107); Creatinine, Serum 0.87 mg/dL (0.55-1.02); EST Glomerular Filtration Rate 72 mL/min (>60); Est Glom Filt Rate - Afr Amer 87 mL/min (>60); Estimated Creatinine Clearance 92.99 ml/min; Glucose 113 mg/dL (74-106); Potassium 3.6 mmol/L (3.5-5.1); Sodium Level 137 mmol/L (136-145); Troponin-I HS 4 pg/mL (3.0-54.0)
[2024-09-23] MEDS: DiphenhydrAMINE 50 MG/ML Syringe 25 MG IV (04:16)
[2024-09-23] MEDS: Ketorolac 30 MG/ML Syringe IV (04:18)
[2024-09-23] MEDS: Metoclopramide 10 MG/2 ML Vial IV (04:19)
[2024-09-23 04:53] VITALS: BP 148/79; PULSE 77; RESP 20; TEMP 36.8; O2SAT 98
== END 2024-09-23 05:00 | disposition home or self-care (01) ==
PROVIDERS: Emergency Provider Emergency Medicine; PCP Family Medicine; Visit Provider Emergency Medicine
DX: I10 Essential (primary) hypertension (principal); M06.9 Rheumatoid arthritis, unspecified; M32.9 Systemic lupus erythematosus, unspecified; M54.2 Cervicalgia; F17.290 Nicotine dependence, other tobacco product, uncomplicated; Z79.01 Long term (current) use of anticoagulants; Z79.899 Other long term (current) drug therapy; Z86.711 Personal history of pulmonary embolism
CPT/HCPCS: 70450; 72125; 80048; 84484; 85025; 85610; 93005; 96374; 96375; 99284; A4216

== ENCOUNTER 2024-12-19 04:47 | Emergency (ER) | payer SELFPAY ==
[2024-12-19 04:48] VITALS: BP 164/96; PULSE 102; RESP 18; TEMP 36.7; O2SAT 98; BMI 38.7
--- NOTE | 2024-12-19 04:56 | EDS_ITS ---
HPI History of Present Illness Chief Complaint: Lower Extremity Injury Informant: patient Narrative Narrative: 54-year-old female injured the bottom of her left foot as she was going up some outdoor steps in her flip-flops, she stepped funny so the flip-flop bent and caused her to scrape the bottom of her great toe MTPJ along the corner of the concrete step sustaining a laceration. She denies any other injury or direct trauma to the foot otherwise. Is been bleeding a lot because she is on warfarin for a history of a pulmonary embolus. Tetanus Immunization: 5-10 years [facility] Medical History Hypertension Anxiety Pulmonary embolism Rheumatoid arthritis Lupus (systemic lupus erythematosus) Home Medications ?Medication ?Instructions ?Recorded ?Last Taken ?Type lorazepam 1 mg tablet 1 mg PO BID PRN PRN Anxiety 01/15/14 Unknown History warfarin 7.5 mg tablet 10 mg PO DAILY 05/25/18 10/0 04/18 History paroxetine HCl 10 mg tablet 10 mg PO DAILY 01/19/21 Un known History methocarbamol 500 mg tablet See Rx Instructions .Route 09/23/24 Unknown Rx .COMPLEX #56 tabs cephalexin 500 mg capsule 500 mg PO TID 5 days #15 CAP SULES 12/19/24 Unknown Rx metoprolol succinate 25 mg 50 mg PO DAILY 12/19/24 Unk nown History tablet,extended release 24 hr Allergy/AdvReac Type Severity Reaction Status Date / Time venlafaxine (From Effexor) Allergy Mild htn Verified 09/23/24 02:39 Family History Mother Diabetes Heart disease Hypertension High cholesterol Kidney disease Brother Diabetes High cholesterol Sister Diabetes High cholesterol Thyroid disorder Surgical History History of History of laparoscopic cholecystectomy History of hysterectomy Social History Smoking Status: Current every day smoker tobacco type: e-cigarettes ROS ROS ED Constitutional Constitutional ED: Denies chills or fever(s) Musculoskeletal Musculoskeletal: Reports extremity pain; Denies neck pain Integumentary Reports wounds; Denies Abrasions or rash Neurologic Neurologic: Denies paresthesias or weakness EXAM Physical Exam Const Vital Signs: 12/19/24 04:48 Temperature 98.1 F Temperature Source Oral Pulse Rate 102 H Respiratory Rate 18 Blood Pressure 164/96 H Blood Pressure Mean 118 Pulse Ox 98 Oxygen Delivery Method Room Air Positive well nourished and well developed General Appearance ED: well developed and NAD Neck full ROM and supple Back/Spine normal ROM and normal to inspection Extremity Extremity Narrative: Laceration to the bottom of the left foot near the great toe, no bony tenderness no other injuries full range of motion see below. Neuro oriented x3, no focal motor deficits and no sensory deficits noted Sensorium / Orientation: alert Psych mental status grossly normal and thought process normal Skin Skin Narrative: 3.5 cm laceration within the plantar crease of the left first MTPJ. It is clean appearing. There is brisk oozing of venous blood. No other injuries. No foreign bodies. No bony tenderness. Full range of motion. Rashes: no rashes MDM MDM MDM Narrative Medical decision making narrative: Laceration was repaired see the procedure note. Lidocaine with epinephrine was used to help with hemostasis as there was brisk venous oozing from the wound. Good hemostasis obtained by the time the repair was finished. I used 5-0 suture because the needles are smaller, and it was a precarious position to suture, the plantar aspect of the crease of the toe at the MTPJ, and into the webspace between the toes, and the 4-0 suture that we have have needles that are too big to fit into these areas. Placed the patient on 5 days of cephalexin to help with infection prophylaxis since this was full-thickness on the bottom of the foot which is at high risk of infection. She checks her INR at home, she checked it 3 days ago and it was 3.7, she is post be between 3 and 4 according to her specialist. She will continue monitoring at home so we did not check it today. Follow-up in 2 weeks for wound reevaluation and suture removal, and advised to monitor for signs of infection. Offered a postop shoe but declined. Procedures Lacerations L foot: Length: 3.5 cm Depth: Sub Q Shape: Linear Prep: Sterile Conditions and Chlorhexadine Laceration repair: Irrigated, Lidocaine with epi (1%, 4cc), Local and Skin sutures Irrigated (ml): 125 Number of Sutures/Penelope: 9 Suture Information: Ethilon, Simple and 5-0 Comment: Good skin edge apposition and hemostasis. No foreign material removed from wound, clean. Discharge Plan Triage Chief Complaint: Lower Extremity Injury ED Provider: Ben Leal Dx/Rx/DC Orders Clinical Impression: Laceration of plantar aspect of left foot, Warfarin-induced coagulopathy Instructions: ED Laceration, Foot: All Closures Prescriptions: New cephalexin 500 mg capsule 500 mg PO TID 5 Days Qty: 15 0RF No Action lorazepam 1 MG tablet 1 mg PO BID PRN PRN (Reason: Anxiety) Rx Instructions: PRN ANXIETY warfarin 7.5 mg tablet 10 mg PO DAILY Rx Instructions: 8mg 3x/week on Friday and Friday, all other days 9mg paroxetine HCl 10 mg tablet 10 mg PO DAILY Patient Comments: Take 1 tablet by mouth once daily. metoprolol succinate 25 mg tablet extended release 24 hr 50 mg PO DAILY methocarbamol 500 mg tablet See Rx Instructions .ROUTE .COMPLEX Qty: 56 0RF Rx Instructions: 1 to 2 pills by mouth 4 times daily as needed muscle pain/spasm Primary Care Provider: Dieter Kevin Referrals: Dieter Kevin MD [Primary Care Provider] - 10-14 Days suture removal Print Language: Cymraes Disposition Disposition: Home, Self Care
[2024-12-19 05:40] VITALS: BP 127/61; PULSE 95; RESP 18; TEMP 36.7; O2SAT 97
[2024-12-19] MEDS: Lidocaine 1% /Epi 1:100 (20ml) 20 ML Vial INFILT (05:41)
== END 2024-12-19 05:47 | disposition home or self-care (01) ==
PROVIDERS: Emergency Provider Emergency Medicine; PCP Family Medicine; Visit Provider Emergency Medicine
DX: S91.312A Laceration without foreign body, left foot, initial encounter (principal); M06.9 Rheumatoid arthritis, unspecified; M32.9 Systemic lupus erythematosus, unspecified; R79.1 Abnormal coagulation profile; T45.515A Adverse effect of anticoagulants, initial encounter; W22.8XXA Striking against or struck by other objects, initial encounter; I10 Essential (primary) hypertension; F17.290 Nicotine dependence, other tobacco product, uncomplicated; Z79.01 Long term (current) use of anticoagulants; Z79.899 Other long term (current) drug therapy; Z86.711 Personal history of pulmonary embolism
CPT/HCPCS: 12002; 99283

== ENCOUNTER 2024-12-26 13:28 | Emergency (ER) | payer SELFPAY ==
[2024-12-26 13:28] VITALS: BP 158/93; PULSE 103; RESP 17; TEMP 37.1; O2SAT 96; BMI 38.0
--- NOTE | 2024-12-26 14:03 | CT_ITS ---
PROCEDURE: SPINE CERVICAL WITHOUT CONTRAS 12/26/2024 REASON FOR EXAM: NECK PAIN TECHNIQUE: Cervical spine CT without contrast. Coronal and Sagittal reconstruction series were provided. One or more dose reduction techniques were used (e.g., Automated exposure control, adjustment of the mA and/or kV according to patient size, use of iterative reconstruction technique COMPARISON: None FINDINGS: * Anatomy: There are seven well formed non rib-bearing cervical segments. * Canal: The visualized cervical spinal cord is within normal limits. * Spinal column: Vertebral body height and alignment are normal. No acute fracture or dislocation. Scattered degenerative changes without high-grade canal stenosis or neural foraminal narrowing. * Soft Tissues: No prevertebral soft tissue swelling. Visualized neck soft tissues are normal. Visualized lung apices are normal. CT/Spine Cervical without Contras IMPRESSION: No acute fracture or traumatic subluxation. Reading Location: PAT
--- NOTE | 2024-12-26 14:03 | CT_ITS ---
PROCEDURE: BRAIN/HEAD WITHOUT CONTRAST 12/26/2024 REASON FOR EXAM: HEAD INJURY TECHNIQUE: Head CT without intravenous contrast. Coronal and Sagittal reconstruction series were provided. One or more dose reduction techniques were used (e.g., Automated exposure control, adjustment of the mA and/or kV according to patient size, use of iterative reconstruction technique. COMPARISON: None FINDINGS: * ACUTE: No acute infarct or hemorrhage. No mass effect or herniation. * BRAIN PARENCHYMA: Signal intensities are within normal limits for age. * VENTRICLES/EXTRA-AXIAL SPACES: No hydrocephalus or extra-axial fluid collections. * EXTRACRANIAL STRUCTURES: Visualized osseous structures are normal. Right frontal scalp laceration with frontal scalp and right periorbital soft tissue swelling, with small underlying hematoma.1 CT/Brain/Head without Contrast IMPRESSION: No acute intracranial abnormality. Mild right frontal scalp and periorbital soft tissue swelling with small lacera tion and underlying hematoma. Reading Location: PAT
--- NOTE | 2024-12-26 14:03 | CT_ITS ---
PROCEDURE: SINUS/FACIAL BONE 12/26/2024 REASON FOR EXAM: FALL TECHNIQUE: Serial axial series through the face were obtained without contrast. Coronal and Sagittal reconstruction series were provided. One or more dose reduction techniques were used (e.g., Automated exposure control, adjustment of the mA and/or kV according to patient size, use of iterative reconstruction technique). COMPARISON: None FINDINGS: Facial bones: No acute facial bone fracture. Mandible: Mandibles and temporomandibular joints are within normal limits. Orbits: Bony orbit and orbital contents are unremarkable. Paranasal sinuses:Mild paranasal sinus mucosal thickening. Miscellaneous: Mild frontal scalp soft, periorbital soft tissue swelling with underlying hematoma and small laceration. Intracranial contents are unremarkable. CT/Sinus/Facial Bone IMPRESSION: No acute facial bone fracture. Mild frontal scalp, periorbital soft tissue swelling with underlying hematoma. Reading Location: PAT
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
[2024-12-26] MEDS: Acetaminophen 500 MG Tablet 1000 MG PO (14:07)
[2024-12-26 14:21] VITALS: BP 172/85; PULSE 91; O2SAT 97
[2024-12-26 15:00] VITALS: BP 175/80; PULSE 84; RESP 16; O2SAT 98
[2024-12-26 15:48] VITALS: BP 141/75; PULSE 87; RESP 16; TEMP 36.6; O2SAT 98
== END 2024-12-26 15:49 | disposition home or self-care (01) ==
PROVIDERS: Emergency Provider Emergency Medicine; PCP Family Medicine; Referring Provider Emergency Medicine; Visit Provider Emergency Medicine
DX: S06.0X0A Concussion without loss of consciousness, initial encounter (principal); M06.9 Rheumatoid arthritis, unspecified; M32.9 Systemic lupus erythematosus, unspecified; S16.1XXA Strain of muscle, fascia and tendon at neck level, initial encounter; V86.69XA Passenger of other special all-terrain or other off-road motor vehicle injured in nontraffic accident, initial encounter; I10 Essential (primary) hypertension; F17.290 Nicotine dependence, other tobacco product, uncomplicated; Z79.01 Long term (current) use of anticoagulants; Z79.899 Other long term (current) drug therapy; Z86.711 Personal history of pulmonary embolism
CPT/HCPCS: 70450; 70486; 72125; 99282